=== PATIENT | female | born 1980 | race Two or more races ===

== ENCOUNTER 2020-08-30 12:23 | Outpatient (REF) | payer OTHER, SELFPAY | END 2020-08-30 12:24 | disposition home or self-care (01) | LOC: HO.LAB 12:23 | PROVIDERS: PCP Internal Medicine; Visit Provider Internal Medicine | DX: Z20.822 Contact with and (suspected) exposure to COVID-19 (principal) | CPT/HCPCS: 36415; C9803; U0003 ==

== ENCOUNTER 2020-10-17 10:33 | Outpatient (REF) | payer MEDICAID, SELFPAY ==
[2020-10-18 09:24] LABS: BV Int Neg Control Negative (Negative); BV Int Pos Control Positive (Positive)
[2020-10-18 11:41] LABS: C. trachomatis RNA TMA NOT DETECTED (NOT DETECTED); N. gonorrhoeae RNA TMA NOT DETECTED (NOT DETECTED)
[2020-10-20 11:42] LABS: HPV mRNA E6/E7 rflx Not Detected (Not Detected)
== END 2020-10-17 10:34 | disposition home or self-care (01) ==
LOC: HO.LAB 10:33
PROVIDERS: PCP Internal Medicine; Visit Provider Advanced Practice Midwife
DX: Z01.419 Encounter for gynecological examination (general) (routine) without abnormal findings (principal); Z30.432 Encounter for removal of intrauterine contraceptive device; Z11.51 Encounter for screening for human papillomavirus (HPV); E66.9 Obesity, unspecified; Z68.32 Body mass index [BMI] 32.0-32.9, adult; Z87.59 Personal history of other complications of pregnancy, childbirth and the puerperium
CPT/HCPCS: 36415; 58301; 81025; 87480; 87491; 87510; 87591; 87624; 87660; 88142; 99395

== ENCOUNTER 2020-12-20 11:31 | Outpatient (REF) | payer OTHER, SELFPAY | END 2020-12-20 11:32 | disposition home or self-care (01) | LOC: HO.LAB 11:31 | PROVIDERS: Visit Provider Internal Medicine | DX: Z20.822 Contact with and (suspected) exposure to COVID-19 (principal) | CPT/HCPCS: C9803; U0003; U0005 ==

== ENCOUNTER 2021-01-07 17:57 | Emergency (ER) | payer OTHER, SELFPAY ==
--- NOTE | ~2021-01-07 | CT_ITS ---
EXAMINATION: CT ABDOMEN AND PELVIS WITHOUT CONTRAST CLINICAL INFORMATION: Left flank pain COMPARISON: Ultrasound 06/18/2016 TECHNIQUE: Multidetector volumetric imaging was performed from the superior aspect of the liver through the pubic symphysis. Sagittal and coronal reformatted images were obtained on the technologist's workstation. This CT examination was performed using dose optimization techniques as appropriate, variously including the following: *Automated exposure control *Adjustment of mA and/or kV according to patient size (this includes techniques or standardized protocols for targeted exams where dose is matched to indication/reason for exam; i.e. extremities or head) *Use of iterative reconstruction technique DLP: 927 mGy-cm FINDINGS: LUNG BASES: Bibasilar atelectasis. Normal heart size. LIVER, GALLBLADDER, AND BILIARY TREE: The liver is normal in size, shape, and attenuation. No focal hepatic lesion or biliary ductal dilatation is present. The gallbladder is unremarkable with no evidence of radiopaque gallstones, gallbladder wall thickening, or obvious pericholecystic inflammatory changes. PANCREAS: Unremarkable. SPLEEN: Unremarkable. ADRENAL GLANDS: Unremarkable. KIDNEYS AND URETERS: Normal right kidney. There is severe hydronephrosis of the left kidney without dilation of the left ureter. No calculi seen. BLADDER: Unremarkable. GASTROINTESTINAL TRACT: Stomach and small bowel are nondilated. Normal appendix. No evidence of colitis or diverticulitis. ABDOMINAL WALL: Small fat-containing umbilical hernia. LYMPH NODES: Numerous normal sized retroperitoneal lymph nodes are present. VASCULAR: Normal caliber aorta. PELVIC VISCERA: The uterus and adnexa are unremarkable. OSSEOUS STRUCTURES: No acute or suspicious osseous abnormality. CT/CT abdomen pelvis wo con IMPRESSION: Severe hydronephrosis of the left kidney without involvement of the left ureter. The appearance suggests a ureteropelvic junction obstruction. The prior renal ultrasound from 06/18/2016 showed left-sided hydronephrosis although the patient was at that time.
[2021-01-07 18:17] VITALS: BP 103/61; PULSE 116; RESP 20; TEMP 37.4; O2SAT 97; BMI 42.3
[2021-01-07 20:21] VITALS: BP 118/68; PULSE 104; RESP 16; TEMP 37.9; O2SAT 99
--- NOTE | 2021-01-07 20:26 | ED_ITS ---
HPI - Female Genitourinary General Chief complaint: Urogenital-Female Stated complaint: ?UTI Time Seen by Provider: 01/07/21 20:26 Source: patient and family Mode of arrival: ambulatory Limitations: no limitations History of Present Illness HPI Narrative: L flank pain for 2 days then developed dysuria and pain today with some nausea and chills MD elicited complaint: dysuria and flank pain Onset (ago): day(s) (2) Severity: mild Female Urogenital Radiation: L Flank Quality of pain: stabbing Consistency: constant Vaginal discharge: none Vaginal bleeding: none Urinary symptoms: Dysuria, Urgency and Frequency Exacerbating factors: urination Relieving factors: none Associated symptoms: abdominal pain, chills and nausea Treatment prior to arrival: none Related Data Previous Rx's Medication Instructions Recorded vitamin with calcium 1 tab PO DAILY #90 tab 10/17/20 no.72-iron 27 mg-folic acid 1 mg tablet metronidazole 0.75 % vaginal gel 1 appful VAGINAL BEDTIME 5 Days 10/20/20 #70 g cefuroxime axetil 500 mg PO BID 10 Days #20 tab 01/08/21 hydrocodone-acetaminophen 1 tab PO Q6H PRN #12 tab 01/08/21 ondansetron 4 mg PO Q8H PRN #20 tab 01/08/21 Allergies Allergy/AdvReac Type Severity Reaction Status Date / Time diphenhydramine Allergy Intermediate HIVES, Verified 10/19/20 16:02 [From BENADRYL] ANXIETY Benadryl Allergy Unknown HIVES,ANXIE Verified 10/19/20 16:02 TY Review of Systems Review of Systems: Constitutional : No Fever, pos Chills ENT/Mouth : No sore throat Eyes: No Eye Pain, No Swelling, No Redness Cardiovascular : No Chest Pain, No SOB Respiratory : No Cough, No Sputum, No Wheezing Gastrointestinal : positive Nausea, no Vomiting, No Diarrhea, positive abdominal pain Genitourinary : positive Dysuria, positive urinary frequency, no Hematuria, positive Flank Pain, positive hesitancy Musculoskeletal : No joint pain, No Myalgias Skin : No Skin Lesions, No rash Neuro : No Weakness, No Numbness, No Headache Psych : No Anxiety/Panic, No Depression Heme/Lymph: No Bruising, No Lymphadenopathy Endocrine : No Polyuria, No Polydipsia All other systems reviewed and are negative [facility] Past Medical History Attestation statement: The following information was validated with the patient. Medical History Back pain Chronic sinusitis GERD (gastroesophageal reflux disease) Microcytic anemia Morbid obesity Surgical History History of cervical spinal surgery UPJ (ureteropelvic junction) obstruction Family History Family History Father Diabetes CVD (cardiovascular disease) Hypertension Mother Diabetes Hypertension Maternal Grandmother Diabetes Hypertension Paternal Grandmother No problems noted. Paternal Grandfather No problems noted. Son In good health Son In good health Brother In good health Brother In good health Social History Social History Alcohol intake: current Alcohol intake frequency: holidays/special occasions only Smoking Status: Former smoker Advance Directives: No Advance Directives Information Provided: No Gender identity: female Physical Exam Vital Signs: Vital Signs: Last Vital Signs Temp 100.2 F 01/07/21 20:21 Pulse 104 H 01/07/21 20:21 Resp 16 01/07/21 22:08 BP 118/68 01/07/21 20:21 Pulse Ox 99 01/07/21 20:21 Body Mass Index 42.3 Appearance: Alert. Oriented X3. No acute distress. Eyes: Pupils equal, round and reactive to light. ENT: Pharynx normal. Neck: Normal inspection. Neck supple. CVS: Normal heart rate and rhythm. Pulses normal. Respiratory: No respiratory distress. Breath sounds normal. Abdomen: Soft and nontender. mild L flank CVA ttp Skin: Skin warm and dry. Normal skin color. Normal skin turgor. Extremities: No lower extremity edema. No calf ttp Neuro: Oriented X 3. No motor deficit. No sensory deficit. Course Course Course Narrative: + UA - infection suspected at this time 1008pm - cultures, lactic acid, ceftriaxone ordered + UTI, eating not toxic, has known hydronephrosis per her reports finding is not new, will refer to urology and start on antibiotics MDM - Female Genitourinary MDM Narrative Medical decision making narrative: 40 yo female here with L flank pain and urinary symptoms at this time will need labs, UA, CT scan for renal colic, IV morphine for pain, dispo per results and improvement Lab Data Result diagrams: 01/07/21 21:01 01/07/21 21:01 Labs: Lab Results 01/07/21 01/07/21 01/07/21 Range/Units 21:01 21:01 21:01 WBC 14.4 H (4.8-10.8) X10*3/uL RBC 4.75 (4.20-5.50) X10*6/uL Hgb 11.1 L (12.0-16.0) g/dl Hct 33.7 L (37-47) % MCV 70.9 L (80-98) fL MCH 23.4 L (27.0-33.0) pg MCHC 32.9 (31.0-35.0) g/dl RDW 15.8 (11.0-16.0) % Plt Count 192 (160-400) X10*3/uL MPV 10.3 (9.4-12.3) fL Immature Gran % (Auto) 0.6 H (0.0-0.4) % Neut % (Auto) 89.2 H (45-73) % Lymph % (Auto) 6.5 L (20-40) % [place] % (Auto) 3.3 (2-11) % Eos % (Auto) 0.1 (0-4) % Baso % (Auto) 0.3 (0-2) % Lymph # (Auto) 0.9 L (1.2-4.9) X10*3/uL [place] # (Auto) 0.5 (0.1-1.2) X10*3/uL Eos # (Auto) 0.0 (0.0-0.4) X10*3/uL Baso # (Auto) 0.0 (0.0-0.2) X10*3/uL Abs Immat Gran (auto) 0.09 H (0.00-0.03) X10*3/uL Absolute Neuts (auto) 12.8 H (2.0-8.3) X10*3/uL Absolute Nucleated RBC 0.000 (0.0-0.012) X10*3/uL Nucleated RBC % (auto) 0.0 (0.0-0.2) /100WBC Hold Blue Top SEE NOTE Sodium 140 (135-145) mmol/L Potassium 4.0 (3.3-5.1) mmol/L Chloride 107 (96-108) mmol/L Carbon Dioxide 24 (22-29) mmol/L Anion Gap 13 (12-20) BUN 17 H (9-16) mg/dL Creatinine 1.20 (0.5-1.4) mg/dL Estim Creat Clear Calc 65.5 Estimated GFR 50 Random Glucose 112 (60-115) mg/dL Lactic Acid (0.5-2.0) mmol/L Calcium 8.9 (8.4-10.2) mg/dL Magnesium 1.6 (1.6-2.6) mg/dL Total Bilirubin 2.2 H (0.0-1.0) mg/dL Direct Bilirubin 1.0 H (0.0-0.5) mg/dL AST 16 (5-31) U/L ALT 24 (0-31) U/L Alkaline Phosphatase 98 (39-117) U/L Total Protein 7.2 (6.5-8.0) g/dL Albumin 3.8 (3.5-5.0) g/dL Lipase 32 (8-78) U/L Urine Color Urine Appearance Urine pH (5.0-8.0) Ur Specific [place] (1.005-1.025) Urine Protein (NEG-TRACE) MG/DL Urine Glucose (UA) (NEG) MG/DL Urine Ketones (NEG) MG/DL Urine Blood (NEG) Urine Nitrite (NEG) Ur Leukocyte Esterase (NEG) Urine RBC (0) /HPF Urine WBC (0-4) /HPF Urine WBC Clumps Ur Squamous Epith Cells /LPF Urine Bacteria /LPF Urine Mucus /LPF Urine Test (NEGATIVE) 01/07/21 01/07/21 01/07/21 Range/Units 21:52 21:52 22:30 WBC (4.8-10.8) X10*3/uL RBC (4.20-5.50) X10*6/uL Hgb (12.0-16.0) g/dl Hct (37-47) % MCV (80-98) fL MCH (27.0-33.0) pg MCHC (31.0-35.0) g/dl RDW (11.0-16.0) % Plt Count (160-400) X10*3/uL MPV (9.4-12.3) fL Immature Gran % (Auto) (0.0-0.4) % Neut % (Auto) (45-73) % Lymph % (Auto) (20-40) % [place] % (Auto) (2-11) % Eos % (Auto) (0-4) % Baso % (Auto) (0-2) % Lymph # (Auto) (1.2-4.9) X10*3/uL [place] # (Auto) (0.1-1.2) X10*3/uL Eos # (Auto) (0.0-0.4) X10*3/uL Baso # (Auto) (0.0-0.2) X10*3/uL Abs Immat Gran (auto) (0.00-0.03) X10*3/uL Absolute Neuts (auto) (2.0-8.3) X10*3/uL Absolute Nucleated RBC (0.0-0.012) X10*3/uL Nucleated RBC % (auto) (0.0-0.2) /100WBC Hold Blue Top Sodium (135-145) mmol/L Potassium (3.3-5.1) mmol/L Chloride (96-108) mmol/L Carbon Dioxide (22-29) mmol/L Anion Gap (12-20) BUN (9-16) mg/dL Creatinine (0.5-1.4) mg/dL Estim Creat Clear Calc Estimated GFR Random Glucose (60-115) mg/dL Lactic Acid 0.8 (0.5-2.0) mmol/L Calcium (8.4-10.2) mg/dL Magnesium (1.6-2.6) mg/dL Total Bilirubin (0.0-1.0) mg/dL Direct Bilirubin (0.0-0.5) mg/dL AST (5-31) U/L ALT (0-31) U/L Alkaline Phosphatase (39-117) U/L Total Protein (6.5-8.0) g/dL Albumin (3.5-5.0) g/dL Lipase (8-78) U/L Urine Color DARK YELLOW Urine Appearance CLOUDY Urine pH 6.5 (5.0-8.0) Ur Specific [place] 1.010 (1.005-1.025) Urine Protein 2+ H (NEG-TRACE) MG/DL Urine Glucose (UA) NEG (NEG) MG/DL Urine Ketones NEG (NEG) MG/DL Urine Blood 3+ H (NEG) Urine Nitrite POS H (NEG) Ur Leukocyte Esterase 3+ H (NEG) Urine RBC 5-9 H (0) /HPF Urine WBC TNTC H (0-4) /HPF Urine WBC Clumps NOTED Ur Squamous Epith Cells TRACE /LPF Urine Bacteria TRACE /LPF Urine Mucus TRACE /LPF Urine Test NEGATIVE (NEGATIVE) Discharge Plan Discharge Clinical Impression: UTI (urinary tract infection) Qualifiers: Urinary tract infection type: acute cystitis Hematuria presence: without hematuria Qualified Code(s): N30.00 - Acute cystitis without hematuria Hydronephrosis Qualifiers: Hydronephrosis type: other Qualified Code(s): N13.39 - Other hydronephrosis Patient Disposition: Home, Self-Care Instructions: Urinary Tract Infection in Women (ED) Additional Instructions: return to ED for any worsening symptoms or concerns Prescriptions: New cefuroxime axetil 500 mg tablet 500 mg PO BID 10 Days Qty: 20 RF: 0 hydrocodone-acetaminophen 5-325 mg tablet 1 tab PO Q6H PRN (Reason: pain) Qty: 12 RF: 0 ondansetron 4 mg tablet,disintegrating 4 mg PO Q8H PRN (Reason: nausea and vomiting) Qty: 20 RF: 0 No Action metronidazole [Metrogel Vaginal] 0.75 % gel 1 appful vaginal BEDTIME 5 Days Qty: 70 RF: 0 Vitamin Plus Low Iron 27 mg iron- 1 mg tablet 1 tab PO DAILY Qty: 90 RF: 5 Referrals: Yeyo Camacho MD [Physician] - 5 days Print Language: Yi
[2021-01-07] MEDS: ondansetron HCL 4 MG/2 ML VIAL IVPUSH (21:02)
[2021-01-07] MEDS: Ketorolac Tromethamine 30 MG/ML VIAL IVPUSH (21:04)
[2021-01-07 21:06] VITALS: RESP 16
[2021-01-07] MEDS: Morphine Sulfate 4 MG/ML CARTRIDGE IVPUSH (21:06)
[2021-01-07] MEDS: 0.9 % Sodium Chloride 500 ML IV (21:10)
[2021-01-07 21:18] LABS: MANUAL DIFF FLAG NO
[2021-01-07 21:23] LABS: Basophils Percent Auto 0.3 % (0-2); Eosinophils Percent Auto 0.1 % (0-4); Hematocrit 33.7 % (37-47); Hemoglobin 11.1 g/dl (12.0-16.0); Imm Gran Abs Auto 0.09 X10*3/uL (0.00-0.03); Imm Gran Pct Auto 0.6 % (0.0-0.4); Lymphocytes Absolute Auto 0.9 X10*3/uL (1.2-4.9); Lymphocytes Percent Auto 6.5 % (20-40); Mean Corpuscular HGB Conc 32.9 g/dl (31.0-35.0); Mean Corpuscular Hemoglobin 23.4 pg (27.0-33.0); Mean Corpuscular Volume 70.9 fL (80-98); Mean Platelet Volume 10.3 fL (9.4-12.3); Monocytes Absolute Auto 0.5 X10*3/uL (0.1-1.2); Monocytes Percent Auto 3.3 % (2-11); Neutrophils Absolute Auto 12.8 X10*3/uL (2.0-8.3); Neutrophils Percent Auto 89.2 % (45-73); Platelet Count 192 X10*3/uL (160-400); Red Blood Count 4.75 X10*6/uL (4.20-5.50); Red Cell Distribution Width 15.8 % (11.0-16.0); White Blood Count 14.4 X10*3/uL (4.8-10.8)
[2021-01-07 21:41] LABS: Alanine Aminotransferase 24 U/L (0-31); Albumin Level 3.8 g/dL (3.5-5.0); Alkaline Phosphatase 98 U/L (39-117); Anion Gap 13 (12-20); Aspartate Amino Transferase 16 U/L (5-31); Bilirubin Total 2.2 mg/dL (0.0-1.0); Blood Urea Nitrogen 17 mg/dL (9-16); Calcium 8.9 mg/dL (8.4-10.2); Carbon Dioxide 24 mmol/L (22-29); Chloride 107 mmol/L (96-108); Creatinine Clr Calc Pharmacy 65.5; Estimated Glomerular Filt Rate 50; Glucose Random 112 mg/dL (60-115); Lipase 32 U/L (8-78); Magnesium 1.6 mg/dL (1.6-2.6); Sodium 140 mmol/L (135-145); Total Protein 7.2 g/dL (6.5-8.0)
[2021-01-07 22:00] LABS: Glucose Urine UA NEG (NEG); Leukocyte Esterase Urine 3+ (NEG); Nitrite Urine POS (NEG); PH 6.5 (5.0-8.0); UACC Culture Trigger YES; Urine Blood 3+ (NEG); Urine Ketones NEG (NEG); Urine Protein 2+ MG/DL (NEG-TRACE)
[2021-01-07 22:04] LABS: Appearance Urine CLOUDY; Color Urine DARK YELLOW
[2021-01-07 22:07] VITALS: RESP 16
[2021-01-07 22:08] VITALS: RESP 16
[2021-01-07 22:14] LABS: Bacteria Urine TRACE /LPF; Mucus Urine TRACE /LPF; Squamous Epithelial Cell Urine TRACE /LPF; UPreg QC Valid YES; Urine Pregnancy NEGATIVE (NEGATIVE); WBC Clumps Urine NOTED; WBC Urine TNTC /HPF (0-4)
[2021-01-07] MEDS: cefTRIAXone sodium 1 GM in 0.9 % Sodium Chloride 50 ML IV (22:45)
[2021-01-07 22:58] LABS: Lactic Acid 0.8 mmol/L (0.5-2.0)
== END 2021-01-08 00:42 | disposition home or self-care (01) ==
PROVIDERS: Emergency Provider Emergency Medicine; PCP Internal Medicine
DX: N30.00 Acute cystitis without hematuria (principal); N13.39 Other hydronephrosis; R11.0 Nausea
CPT/HCPCS: 36415; 74176; 80048; 80076; 81001; 81003; 81025; 83605; 83690; 83735; 85025; 87040; 87086; 87088; 87186; 96361; 96365; 96375; 99284; J0696; J1885; J2270; J2405

== ENCOUNTER 2022-01-29 09:13 | Outpatient (REF) | payer OTHER, SELFPAY ==
[2022-01-29 09:40] LABS: COVID-19 Test Positive (Negative)
== END 2022-01-29 09:14 | disposition home or self-care (01) ==
LOC: HO.LAB 09:13
PROVIDERS: Visit Provider Internal Medicine
DX: Z20.822 Contact with and (suspected) exposure to COVID-19 (principal)
CPT/HCPCS: 87635; C9803

== ENCOUNTER 2022-02-27 09:06 | Outpatient (REF) | payer OTHER, SELFPAY ==
--- NOTE | ~2022-02-27 | XR_ITS ---
EXAMINATION: XR CERVICAL SPINE CLINICAL INFORMATION: Neck pain. COMPARISON: None. TECHNIQUE: 3 views of the cervical spine were obtained. 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 There is cerclage wires and posterior fusion of the occipital prominence and C1-C2 spinous processes. The remainder of the spinous processes appear small. Bone alignment is normal. No fracture or dislocation is seen. Disc spaces are normal. Prevertebral soft tissues are normal. 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 Posterior fusion of the posterior elements at these levels.
[2022-02-27 09:21] LABS: MANUAL DIFF FLAG NO
[2022-02-27 09:33] LABS: Basophils Percent Auto 0.5 % (0-2); Eosinophils Absolute Auto 0.3 X10*3/uL (0.0-0.4); Eosinophils Percent Auto 3.2 % (0-4); Hematocrit 36.1 % (37.0-47.0); Hemoglobin 11.8 g/dl (12.0-16.0); Imm Gran Abs Auto 0.01 X10*3/uL (0.00-0.03); Imm Gran Pct Auto 0.1 % (0.0-0.4); Lymphocytes Absolute Auto 2.7 X10*3/uL (1.2-4.9); Lymphocytes Percent Auto 32.8 % (20-40); Mean Corpuscular HGB Conc 32.7 g/dl (31.0-35.0); Mean Corpuscular Hemoglobin 23.7 pg (27.0-33.0); Mean Corpuscular Volume 72.6 fL (80.0-98.0); Mean Platelet Volume 10.8 fL (9.4-12.3); Monocytes Absolute Auto 0.3 X10*3/uL (0.1-1.2); Monocytes Percent Auto 4.2 % (2-11); Neutrophils Absolute Auto 4.8 x10*3/uL (2.0-8.3); Neutrophils Percent Auto 59.2 % (45-73); Platelet Count 271 X10*3/uL (160-400); Red Blood Count 4.97 X10*6/uL (4.20-5.50); Red Cell Distribution Width 14.9 % (11.0-16.0); White Blood Count 8.1 X10*3/uL (4.8-10.8)
[2022-02-27 10:14] LABS: Alanine Aminotransferase 26 U/L (0-31); Albumin Level 3.9 g/dL (3.5-5.0); Alkaline Phosphatase 86 U/L (39-117); Anion Gap 10 (12-20); Aspartate Amino Transferase 13 U/L (5-31); Bilirubin Total 0.5 mg/dL (0.0-1.0); Blood Urea Nitrogen 15 mg/dL (9-16); Carbon Dioxide 24 mmol/L (22-29); Chloride 108 mmol/L (96-108); Cholesterol 191 mg/dL; Estimated Glomerular Filt Rate > 60; Glucose Fasting 96 mg/dL (60-99); HDL Cholesterol 47 mg/dL; Iron 79 mcg/dL (30-160); LDL Cholesterol Calculated 124 mg/dl; Percent Iron Saturation 24 % (15-50); Sodium 138 mmol/L (135-145); Total Iron Binding Capacity 327 mcg/dL (228-428); Total Protein 7.4 g/dL (6.5-8.0); Triglycerides 102 mg/dL; Unsaturated Iron Binding 248 ug/dL
[2022-03-05 16:37] LABS: Vitamin D 25-OH, D2 <4 ng/mL; Vitamin D 25-OH, D3 22 ng/mL; Vitamin D 25-OH, Total 22 ng/mL (30-100)
== END 2022-02-27 09:07 | disposition home or self-care (01) ==
LOC: HO.LAB 09:06
PROVIDERS: PCP Internal Medicine; Visit Provider Internal Medicine
DX: Z00.00 Encounter for general adult medical examination without abnormal findings (principal); D64.9 Anemia, unspecified; E78.5 Hyperlipidemia, unspecified; E55.9 Vitamin D deficiency, unspecified; E66.01 Morbid (severe) obesity due to excess calories; M54.2 Cervicalgia
CPT/HCPCS: 36415; 72040; 80053; 80061; 82306; 83540; 85025

== ENCOUNTER 2022-06-21 18:38 | Emergency (ER) | payer OTHER, SELFPAY ==
--- NOTE | ~2022-06-21 | XR_ITS ---
EXAMINATION: XR chest 1V CLINICAL INFORMATION: Reason for Exam cp COMPARISON: None TECHNIQUE: One view of the chest FINDINGS: Right medial basilar airspace opacity which may reflect atelectasis, aspiration or infection. No pneumothorax or pleural effusion. Normal cardiomediastinal silhouette. XR/XR chest 1V Impression: Right medial basilar airspace opacity which may reflect atelectasis, aspiration or infection. Recommend follow-up radiographs to ensure resolution.
--- NOTE | 2022-06-21 18:40 | ECG_ITS ---
Test Reason : CHEST PAIN Blood Pressure : / mmHG Vent. Rate : 079 BPM Atrial Rate : 079 BPM P-R Int : 146 ms QRS Dur : 078 ms QT Int : 412 ms P-R-T Axes : 055 -02 -07 degrees QTc Int : 472 ms Normal sinus rhythm Minimal voltage criteria for LVH, may be normal variant ( R in aVL ) Nonspecific ST and T wave abnormality Prolonged QT Abnormal ECG No previous ECGs available Referred By: Generic ED Physician Electronically Signed By:ANUM ANDINO MD
[2022-06-21 18:41] VITALS: BP 137/72; PULSE 81; RESP 18; TEMP 36.1; O2SAT 100; BMI 52.8
[2022-06-21 19:02] LABS: MANUAL DIFF FLAG NO
[2022-06-21 19:04] LABS: Basophils Absolute Auto 0.1 X10*3/uL (0.0-0.2); Basophils Percent Auto 0.5 % (0-2); Eosinophils Absolute Auto 0.2 X10*3/uL (0.0-0.4); Eosinophils Percent Auto 1.5 % (0-4); Hematocrit 37.3 % (37.0-47.0); Hemoglobin 12.5 g/dl (12.0-16.0); Imm Gran Abs Auto 0.03 X10*3/uL (0.00-0.03); Imm Gran Pct Auto 0.3 % (0.0-0.4); Lymphocytes Absolute Auto 2.6 X10*3/uL (1.2-4.9); Lymphocytes Percent Auto 24.1 % (20-40); Mean Corpuscular HGB Conc 33.5 g/dl (31.0-35.0); Mean Corpuscular Hemoglobin 24.5 pg (27.0-33.0); Mean Corpuscular Volume 73.1 fL (80.0-98.0); Mean Platelet Volume 10.3 fL (9.4-12.3); Monocytes Absolute Auto 0.5 X10*3/uL (0.1-1.2); Monocytes Percent Auto 4.2 % (2-11); Neutrophils Absolute Auto 7.6 x10*3/uL (2.0-8.3); Neutrophils Percent Auto 69.4 % (45-73); Platelet Count 274 X10*3/uL (160-400); Red Cell Distribution Width 14.1 % (11.0-16.0); White Blood Count 10.9 X10*3/uL (4.8-10.8)
[2022-06-21 19:27] LABS: Alanine Aminotransferase 24 U/L (0-31); Albumin Level 4.1 g/dL (3.5-5.0); Alkaline Phosphatase 90 U/L (39-117); Anion Gap 15 (12-20); Aspartate Amino Transferase 16 U/L (5-31); Bilirubin Total 0.3 mg/dL (0.0-1.0); Blood Urea Nitrogen 15 mg/dL (9-16); Calcium 9.4 mg/dL (8.4-10.2); Carbon Dioxide 23 mmol/L (22-29); Chloride 106 mmol/L (96-108); Creatinine Clr Calc Pharmacy 66.6; Estimated Glomerular Filt Rate 59; Glucose Random 117 mg/dL (60-115); Sodium 140 mmol/L (135-145); Total Protein 7.8 g/dL (6.5-8.0)
[2022-06-21 19:34] LABS: Troponin-I High Sensitivity < 3.5 ng/L (<3.5-17.0)
--- NOTE | 2022-06-21 22:38 | ED.CHESTPAIN ---
HPI - Chest Pain General Chief Complaint: Chest Pain Stated Complaint: chest pain Time Seen by Provider: 06/21/22 22:37 Source: patient Mode of arrival: ambulatory History of Present Illness HPI narrative: Patient was seen and past medical history complaining of increased heartburn with mid chest pain for last 2 days with nausea no vomiting diarrhea no palpitation patient has a history of heartburn in the past not taking her medication Related Data Previous Rx's Medication Instructions Recorded hydrocortisone 1 % topical cream 1 appl topical TID PRN skin 02/28/22 (Anti-Itch (hydrocortisone)) irritation 7 days #28.4 grams ibuprofen 800 mg tablet 800 mg PO Q8H PRN pain 30 days #90 02/28/22 tabs omeprazole 20 mg capsule,delayed 20 mg PO DAILY 90 days #90 caps 02/28/22 release cholecalciferol (vitamin D3) 25 25 mcg PO DAILY 90 days #90 caps 03/05/22 mcg (1,000 unit) capsule topiramate 25 mg tablet 25 mg PO BEDTIME 90 days #90 tabs 05/27/22 pantoprazole 40 mg tablet,delayed 40 mg PO DAILY #30 tabs 06/21/22 release (Protonix) sucralfate 1 gram tablet 1 g PO TID #90 tabs 06/21/22 Allergies Allergy/AdvReac Type Severity Reaction Status Date / Time diphenhydramine Allergy Intermediate HIVES, Verified 02/28/22 10:52 [From BENADRYL] ANXIETY Benadryl Allergy Unknown HIVES,ANXIE Verified 02/28/22 10:52 [facility] Past Medical History Medical History Back pain Chronic sinusitis Encounter for physical examination GERD (gastroesophageal reflux disease) Microcytic anemia Morbid obesity Neck pain Surgical History History of cervical spinal surgery UPJ (ureteropelvic junction) obstruction Family History Family History Father Diabetes CVD (cardiovascular disease) Hypertension Mother Diabetes Hypertension Maternal Grandmother Diabetes Hypertension Paternal Grandmother No problems noted. Paternal Grandfather No problems noted. Son In good health Son In good health Brother In good health Brother In good health Social History Social History Housing: Apartment Alcohol intake: current Alcohol intake frequency: holidays/special occasions only Alcohol type: beer Patient Tobacco Use Status: Never used Tobacco Smoked in Last 30 Days: No e-Cigarette/Vaping Use: Never Used Second Hand Smoke Exposure: No Use of substances other than those prescribed or required for medical reasons: No Advance Directives: No Advance Directives Information Provided: No Patient : No service: No Current occupational status: employed Current occupational exposures/hazards: No Gender identity: Female Cognitive needs: No Hearing needs: No Vision needs: Yes Physical Exam Vital Signs: Vital Signs: Last Vital Signs Temp 98.4 F 06/21/22 23:09 Pulse 77 06/21/22 23:09 Resp 14 06/21/22 23:09 BP 141/80 H 06/21/22 23:09 Pulse Ox 98 06/21/22 23:09 O2 Del Method 06/21/22 23:09 BMI result Body Mass Index 52.8 Appearance: Alert. Oriented X3. No acute distress. Eyes: PERRLA, No Nystagmus ENT: Pharynx normal. Oral Mucosa moist Neck: Normal inspection. Neck supple. CVS: Normal heart rate and rhythm. Pulses normal. Respiratory: No respiratory distress. Equal air entry bilateral, no wheezing/rales/rhonchi Abdomen: Soft mild epigastric tenderness Bowel sounds are present, no mass palpable, no CVA tenderness Skin: Skin warm and dry. Normal skin color. Normal skin turgor. Extremities: No lower extremity edema. No calf tendernessNo sensory deficit.No cerebellar signs , cranial nerves II-XII intact MDM - Chest Pain MDM Narrative Medical decision making narrative: Patient with history of gastric reflux comes with mid chest pain with heart score of 0 EKG normal high sensitive troponin negative discharge patient home Differential Diagnosis Differential diagnosis: Likely atypical chest pain and biliary colic Medical Records Data Attestation: I reviewed the patient's medical records. Lab Data Attestation: I reviewed the patient's lab results. Result diagrams: 06/21/22 18:56 06/21/22 18:56 Labs: Lab Results 06/21/22 06/21/22 06/21/22 Range/Units 18:56 18:56 18:56 WBC 10.9 H (4.8-10.8) X10*3/uL RBC 5.10 (4.20-5.50) X10*6/uL Hgb 12.5 (12.0-16.0) g/dl Hct 37.3 (37.0-47.0) % MCV 73.1 L (80.0-98.0) fL MCH 24.5 L (27.0-33.0) pg MCHC 33.5 (31.0-35.0) g/dl RDW 14.1 (11.0-16.0) % Plt Count 274 (160-400) X10*3/uL MPV 10.3 (9.4-12.3) fL Immature Gran % (Auto) 0.3 (0.0-0.4) % Neut % (Auto) 69.4 (45-73) % Lymph % (Auto) 24.1 (20-40) % [place] % (Auto) 4.2 (2-11) % Eos % (Auto) 1.5 (0-4) % Baso % (Auto) 0.5 (0-2) % Lymph # (Auto) 2.6 (1.2-4.9) X10*3/uL [place] # (Auto) 0.5 (0.1-1.2) X10*3/uL Eos # (Auto) 0.2 (0.0-0.4) X10*3/uL Baso # (Auto) 0.1 (0.0-0.2) X10*3/uL Abs Immat Gran (auto) 0.03 (0.00-0.03) X10*3/uL Absolute Neuts (auto) 7.6 (2.0-8.3) x10*3/uL Absolute Nucleated RBC 0.000 (0.0-0.012) X10*3/uL Nucleated RBC % (auto) 0.0 (0.0-0.2) /100WBC Sodium 140 (135-145) mmol/L Potassium 4.0 (3.3-5.1) mmol/L Chloride 106 (96-108) mmol/L Carbon Dioxide 23 (22-29) mmol/L Anion Gap 15 (12-20) BUN 15 (9-16) mg/dL Creatinine 1.03 (0.5-1.4) mg/dL Estim Creat Clear Calc 66.6 Estimated GFR 59 Random Glucose 117 H (60-115) mg/dL Calcium 9.4 (8.4-10.2) mg/dL Total Bilirubin 0.3 (0.0-1.0) mg/dL AST 16 (5-31) U/L ALT 24 (0-31) U/L Alkaline Phosphatase 90 (39-117) U/L Troponin I High Sens < 3.5 (<3.5-17.0) ng/L Total Protein 7.8 (6.5-8.0) g/dL Albumin 4.1 (3.5-5.0) g/dL ECG Data ECG #1: Attestation: I personally reviewed and interpreted this ECG as follows: Interpretation: Patient atypical chest pain heart rate 79 beats per minute, LVH, nonspecific ST-T changes no acute ischemia Discharge Plan Discharge Clinical Impression: Gastritis, Chest pain due to GERD Patient Disposition: Home, Self-Care Instructions: Gastritis (ED), Noncardiac Chest Pain (ED) Additional Instructions: Avoid fried/spicy Take Protonix daily and sucralfate as prescribed Follow with PCP if not better Prescriptions: New pantoprazole [Protonix] 40 mg tablet,delayed release (DR/EC) 40 mg PO DAILY Qty: 30 0RF sucralfate 1 gram tablet 1 g PO TID Qty: 90 0RF No Action omeprazole 20 mg capsule,delayed release(DR/EC) 20 mg PO DAILY 90 Days Qty: 90 0RF cholecalciferol (vitamin D3) 25 mcg (1,000 unit) capsule 25 mcg PO DAILY 90 Days Qty: 90 1RF topiramate 25 mg tablet 25 mg PO BEDTIME 90 Days Qty: 90 0RF ibuprofen 800 mg tablet 800 mg PO Q8H PRN (Reason: pain) 30 Days Qty: 90 1RF hydrocortisone [Anti-Itch (HC)] 1 % cream 1 appl topical TID PRN (Reason: skin irritation) 7 Days Qty: 28.4 0RF Interventions: ED Discharge Assessment Last Done: 06/21/22 23:11 Discharge Date/Time: 06/21/22 23:12
[2022-06-21] MEDS: Omeprazole 40 MG CAPSULE.DR PO (23:05)
[2022-06-21] MEDS: Magnesium Hydrox/Alum Hydrox 30 ML ORAL.SUSP PO (23:05)
[2022-06-21 23:09] VITALS: BP 141/80; PULSE 77; RESP 14; TEMP 36.9; O2SAT 98
--- NOTE | 2022-06-21 23:11 | PC.NURSE ---
Discharge instructions reviewed with pt. Pt verbalizes understanding.
== END 2022-06-21 23:12 | disposition home or self-care (01) ==
PROVIDERS: Emergency Provider Internal Medicine; PCP Internal Medicine
DX: K29.70 Gastritis, unspecified, without bleeding (principal); R07.89 Other chest pain; K21.9 Gastro-esophageal reflux disease without esophagitis; E66.9 Obesity, unspecified; Z68.43 Body mass index [BMI] 50.0-59.9, adult
CPT/HCPCS: 36415; 71045; 80053; 84484; 85025; 93005; 99283; 99285

== ENCOUNTER → 2023-02-06 09:41 | Outpatient (BNVA) | payer OTHER, SELFPAY | PROVIDERS: PCP Internal Medicine; Visit Provider Advanced Practice Midwife ==

== ENCOUNTER 2024-01-31 08:38 | Outpatient (AMB) | payer OTHER, SELFPAY ==
--- NOTE | 2024-01-31 08:43 | A.OFFVIS_ITS ---
Vital Signs 01/31/24 08:49 Height 4 ft 6 in Weight 219 lb BMI 52.8 BP 105/72 Blood Pressure Location Lt brachial Position Sitting Pulse 73 Pulse Source Pulse Oximeter Pulse Oximetry (%) 99 Oxygen Delivery Method Room Air Intake Visit Reasons: Cervicalgia, lower back pain Intake Note: Pain today 09/28 Supervisor Cytogenetic Laboratory Required: Yes Supervisor Cytogenetic Laboratory Language: Wafer Substrate Tester Name: Anthony- Accompanied by: Spouse Allergies diphenhydramine [From BENADRYL] Allergy (Intermediate, Verified 01/31/24 08:49) HIVES, ANXIETY Benadryl Allergy (Unknown, Verified 01/31/24 08:49) HIVES,ANXIETY HPI HPI Cervicalgia, lower back pain: Details: Patient is a pleasant 43 years old female with history of cervical fusion at age 5 due to fall injury, morbid obesity, chronic neck and back pain, presents today for initial evaluation of neck and back pain. Denies any recent trauma, injury or falls. She has pending cervical, thoracic and lumbar xrays which were ordered by PCP but not completed yet. She reports restricted neck movement since cervical fusion with increased neck pain and muscle spasms with cervical extension and side rotations or bending. Back pain is axial increased with lateral rotations and forward flexion or bending. There is no radiation into upper or lower extremities. Neck and back pain are limiting her daily activities, functioning, mobility and negatively affecting her sleep, social interactions and quality of life. To this point patient has not tried any dedicated conservative treatment in the forms of physical therapy, chiropractic, acupuncture or injections. She recently started semaglutide injections for weight loss support with current BMI=52.8. Patient is interested to start formal physical therapy prior to interventional treatments. Denies any fever, chills, infection, abdominal or groin pain, dizziness, shortness of breaths, chest pain, gait imbalance, foot drop, weakness, bladder or bowel dysfunction or saddle anesthesia. Oswestry Low back disability score=16 (moderate disability) Oswestry Neck disability score=19 (moderate disability) Location: Lower neck radiates down to lower back Duration: Chronic pain for >38 years, cervical fusion at age 5, fell downstairs Characteristics of symptom or complaint: Burning, shooting, pins and needles, st abbing, aching, spasming Aggravating or associated factors: Standing, walking, movement, Relieving factors: Laying flat, Ibuprofen, Tylenol, heat and ice Treatment: None [facility] Medical History (Updated 01/31/24 @ 09:16 by JIM Braden) Neck pain Encounter for physical examination Microcytic anemia Morbid obesity Back pain GERD (gastroesophageal reflux disease) Chronic sinusitis Surgical History (Updated 01/31/24 @ 09:16 by JIM Braden) History of cervical spinal surgery UPJ (ureteropelvic junction) obstruction Family History Father Diabetes CVD (cardiovascular disease) Hypertension Mother Diabetes Hypertension Maternal Grandmother Diabetes Hypertension Paternal Grandmother No problems noted. Paternal Grandfather No problems noted. Son In good health Son In good health Brother In good health Brother In good health Social History Housing: Apartment Alcohol intake: current Alcohol intake frequency: holidays/special occasions only Alcohol type: beer Patient Tobacco Use Status: Never used Tobacco e-Cigarette/Vaping Use: Never Used Second Hand Smoke Exposure: No service: No Current occupational status: unemployed Gender identity: Female Cognitive needs: No Hearing needs: No Vision needs: Yes Female Reproductive History Menstrual Age of Menarche: 13 Review of Systems Const All systems reviewed & are unremarkable except as noted in HPI and below Physical Exam Vital Signs: Last Vital Signs Pulse 73 01/31/24 08:49 BP 105/72 01/31/24 08:49 Pulse Ox 99 01/31/24 08:49 Oxygen Delivery Method Room Air 01/31/24 08:49 BMI result Body Mass Index 52.8 General: Appears afebrile. Morbidly obese. No acute distress. Alert and oriented. Mood and affect appropriate. Follows and participates in conversation appropriately. Respiratory effort is unlabored. No cough. Able to transition from sit to stand unassisted. Ambulates with bilaterally normal heel strike and toe off. Neck Neck: Yes normal visual inspection, Yes no lymphadenopathy, Yes supple, No anterior neck swelling, Yes no JVD and Yes prominent dorsocervical fat pad General: Yes no CVA tenderness Back/Spine/Pelvis Other: Limited lumbar ROM due to body habitus and pain. No midline tenderness to palpation in the thoracic or lumbar region. Moderate paraspinal tenderness to palpation in the lumbar spine bilaterally. Lumbar extension and flexion reproduces mild to moderate pain. Forward flexion reproduces tugging sensations and low back pain. Painful facet loading bilaterally.+2 DTR intact, no clonus. Strength 5/5 hip flexion bilaterally. No groin pain with I/E hip rotations bilaterally.? Back: no CVA tenderness Cervical Spine: loss of normal cervical lordosis, cervical muscular tenderness, pain with cervical ROM, Cervical spine scars present (posterior), cervical spasm, Cervical spine tenderness and No step off deformity Thoracic/Lumbar Spine: thoracic and lumbar spine normal to inspection, No Thoracic/lumbar spine scar(s), Lasegue's sign negative, straight leg raise negative bilaterally, pain with thoraco-lumbar ROM, paraspinal muscle tenderness, thoraco-lumbar ROM limited, No thoracic spinal tenderness and lumbar spinal tenderness (L4-S1) Pelvis: no sciatic notch tenderness Sacroiliac joints: bilaterally tender to palpation Results Reviewed Results Reviewed: XR CERVICAL SPINE 02/27/22 CLINICAL INFORMATION: Neck pain. 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 There is cerclage wires and posterior fusion of the occipital prominence and C1-C2 spinous processes. The remainder of the spinous processes appear small. Bone alignment is normal. No fracture or dislocation is seen. Disc spaces are normal. Prevertebral soft tissues are normal. 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 Posterior fusion of the posterior elements at these levels. Assessment & Plan Assessment & Plan (1) History of cervical spinal surgery: Comment: 1986 cervical spine surgery with wires Code(s): Z98.890 - Other specified postprocedural states Category: Surgical (2) Lumbar pain: Code(s): M54.50 - Low back pain, unspecified Category: Medical (3) Neck pain: Code(s): M54.2 - Cervicalgia Category: Medical (4) Thoracic spine pain: Code(s): M54.6 - Pain in thoracic spine Category: Medical (5) Muscle spasm: Code(s): M62.838 - Other muscle spasm Category: Medical (6) Cervical spondylosis: Code(s): M47.812 - Spondylosis without myelopathy or radiculopathy, cervical region Category: Medical Plan Patient's presentation consistent with axial cervical and lumbar pain with discogenic components. Pain today is minimal, rated at 2/10. We reviewed possible treatment options for both, including PT, diagnostic injections for potential therapeutic injections or RFA. Given BMI>40, patient is not candidate for Sprint PNS trial at this time. Patient is encouraged to continue to loose weight, recently started on semaglutide, encouraged to consider well-balanced diet such as Mediterranean diet and intermittent fasting. Encouraged daily physical activity, adequate hydration, good posture and sleep hygiene. Patient reminded to complete spine xray as ordered by her PCP. Script provided for baclofen for muscle spasms. Side effects and precautions discussed with patient and her . All questions and concerns have been answered and patient agreed with the plan. Follow up after PT/xray review and sooner as needed. Orders: Orders PT Evaluation and Treatment 01/31/24 M47.812 - Spondylosis without myelopathy or radiculopathy, cervical region, M54.2 - Cervicalgia, M54.50 - Low back pain, unspecified, M54.6 - Pain in thoracic spine, M62.838 - Other muscle spasm, Z98.890 - Other specified postprocedural states Medications: New baclofen 10 mg PO BID PRN 60 tabs 0RF muscle spasm 30 days M47.812 - Spondylosis without myelopathy or radiculopathy, cervical region, M54.50 - Low back pain, unspecified, M54.6 - Pain in thoracic spine, M62.838 - Other muscle spasm, Z98.890 - Other specified postprocedural states Coding Level of Care Code New Pt Level 4 (70318) Diagnoses History of cervical spinal surgery Z98.890 Lumbar pain M54.50 Neck pain M54.2 Thoracic spine pain M54.6 Muscle spasm M62.838 Cervical spondylosis M47.812
[2024-01-31 08:49] VITALS: BP 105/72; PULSE 73; O2SAT 99; BMI 52.8
== END 2024-01-31 09:29 | disposition home or self-care (01) ==
PROVIDERS: PCP Internal Medicine; Visit Provider Nurse Practitioner Family
DX: M54.50 Low back pain, unspecified (principal); M54.2 Cervicalgia; M54.6 Pain in thoracic spine; Z98.890 Other specified postprocedural states; M62.838 Other muscle spasm; M47.812 Spondylosis without myelopathy or radiculopathy, cervical region
CPT/HCPCS: 99204

== ENCOUNTER → 2024-01-31 08:38 | Outpatient (BNVA) | payer OTHER, SELFPAY | PROVIDERS: PCP Internal Medicine; Visit Provider Nurse Practitioner Family | DX: M54.50 Low back pain, unspecified (principal); M54.2 Cervicalgia; M54.6 Pain in thoracic spine; M62.838 Other muscle spasm; M47.812 Spondylosis without myelopathy or radiculopathy, cervical region | CPT/HCPCS: 99202 ==

== ENCOUNTER 2024-06-10 09:58 | Emergency (ER) | payer OTHER, SELFPAY ==
--- NOTE | ~2024-06-10 | CT_ITS ---
EXAMINATION: CT ABDOMEN AND PELVIS WITHOUT CONTRAST CLINICAL INFORMATION: Left-sided flank pain COMPARISON: Prior CT abdomen pelvis dated 01/07/2021 TECHNIQUE: Multidetector volumetric imaging was performed from the superior aspect of the liver through the pubic symphysis. Sagittal and coronal reformatted images were obtained on the technologist's workstation. This CT examination was performed using dose optimization techniques as appropriate, variously including the following: *Automated exposure control *Adjustment of mA and/or kV according to patient size (this includes techniques or standardized protocols for targeted exams where dose is matched to indication/reason for exam; i.e. extremities or head) *Use of iterative reconstruction technique DLP: 934 mGy-cm FINDINGS: LUNG BASES: The visualized lung bases are unremarkable. LIVER, GALLBLADDER, AND BILIARY TREE: The liver is normal in size, shape, and attenuation. No focal hepatic lesion or biliary ductal dilatation is present. The gallbladder is unremarkable with no evidence of radiopaque gallstones, gallbladder wall thickening, or obvious pericholecystic inflammatory changes. PANCREAS: Unremarkable. SPLEEN: Unremarkable. ADRENAL GLANDS: Unremarkable. KIDNEYS AND URETERS: The left kidney is somewhat atrophic with a thin cortex and a dilated renal pelvis as was seen on the 2020 exam. This is likely reflective of a UPJ obstruction which appears chronic. No evidence for right or left nephrolithiasis or right hydronephrosis. No evidence for calcifications along the course of the ureters. The bladder is unremarkable. BLADDER: Unremarkable. GASTROINTESTINAL TRACT: The small and large bowel are unremarkable. The appendix is unremarkable. ABDOMINAL WALL: Small fat-containing umbilical hernia no change. LYMPH NODES: Normal. VASCULAR: Unremarkable. PELVIC VISCERA: Unremarkable. OSSEOUS STRUCTURES: Unremarkable. CT/CT abdomen pelvis wo IV con IMPRESSION: Stable left hydronephrosis likely due to a left UPJ obstruction. No change from 01/07/2021. Fleischner guidelines were followed. Electronically signed by: Brandon Vera MD 06/10/2024 03:44 PM EDT
[2024-06-10 10:20] VITALS: BP 125/68; PULSE 80; RESP 16; TEMP 36.1; O2SAT 100; BMI 43.7
[2024-06-10 11:44] LABS: UPreg QC Valid YES
[2024-06-10 11:45] LABS: Appearance Urine Cloudy; Color Urine Dark Yellow; Glucose Urine UA Negative (Negative); Leukocyte Esterase Urine Large (3+) (Negative); Nitrite Urine Negative (Negative); Specific Gravity - Urine 1.015 (1.005-1.025); UMIC TRIGGER UACC YES; Urine Blood Large (3+) (Negative); Urine Ketones Negative (Negative); Urine Protein 30 (1+) mg/dL (Neg-Trace)
[2024-06-10 11:46] LABS: Urine Pregnancy NEGATIVE (NEGATIVE)
[2024-06-10 11:47] LABS: Bacteria Urine 4+ (None Seen); Hyaline Casts Urine 0-2 /LPF (0-2); RBC Urine >20 /HPF (0-2); Squamous Epithelial Cell Urine 0-2 /HPF (0-2); UACC Culture Trigger YES; WBC Urine 21-50 /HPF (0-5)
--- NOTE | 2024-06-10 12:07 | ED.FEMALEGU ---
HPI - Female Genitourinary General Chief complaint: Urogenital-Female Stated complaint: Blood in urine Time Seen by Provider: 06/10/24 11:38 Source: patient Mode of arrival: ambulatory Limitations: no limitations History of Present Illness ED Provider: Pranav Mackenzie PA-C HPI Narrative: [age] female with history of hydronephrosis, cervical spondylosis, and hypertension presents to ED for 2 days of hematuria and low back pain. Patient denies any nausea, vomiting, or dysuria. Patient denies any weight loss, fever, or chills. Related Data Previous Rx's ?Medication ?Instructions ?Recorded ibuprofen 800 mg tablet 800 mg PO Q8H PRN pain 30 days #90 12/14/23 tabs semaglutide (weight loss) 0.25 0.25 mg (0.5 mL) subcut QWEEK 4 01/23/24 mg/0.5 mL subcutaneous pen weeks #2 mL injector (Wegovy) baclofen 10 mg tablet 10 mg PO BID PRN muscle spasm 30 01/31/24 days #60 tabs omeprazole 20 mg capsule,delayed 20 mg PO DAILY 90 days #90 caps 03/28/24 release cefuroxime axetil 250 mg tablet 250 mg PO Q12H 7 days #14 tabs 06/10/24 Allergies Allergy/AdvReac Type Severity Reaction Status Date / Time diphenhydramine Allergy Intermediate HIVES, Verified 06/10/24 10:22 [From BENADRYL] ANXIETY Benadryl Allergy Unknown HIVES,ANXIE Verified 06/10/24 10:22 TY Review of Systems Review of Systems: Back pain, hematuria Yes all other systems are reviewed and are negative [facility] Past Medical History Medical History (Updated 06/10/24 @ 16:05 by DULCE Lemus) Neck pain Encounter for physical examination Microcytic anemia Morbid obesity Back pain GERD (gastroesophageal reflux disease) Chronic sinusitis Surgical History (Updated 01/31/24 @ 09:16 by JIM Braden) History of cervical spinal surgery UPJ (ureteropelvic junction) obstruction Family History Family History Father Diabetes CVD (cardiovascular disease) Hypertension Mother Diabetes Hypertension Maternal Grandmother Diabetes Hypertension Paternal Grandmother No problems noted. Paternal Grandfather No problems noted. Son In good health Son In good health Brother In good health Brother In good health Social History Social History Housing: Apartment Alcohol intake: current Alcohol intake frequency: holidays/special occasions only Alcohol type: beer Patient Tobacco Use Status: Never used Tobacco e-Cigarette/Vaping Use: Never Used Second Hand Smoke Exposure: No Advance Directives: No Advance Directives Information Provided: Yes service: No Current occupational status: unemployed Gender identity: Female Cognitive needs: No Hearing needs: No Vision needs: Yes Physical Exam Vital Signs: Vital Signs: Last Vital Signs Temp 98.5 F 06/10/24 16:20 Pulse 76 06/10/24 16:20 Resp 15 06/10/24 16:20 BP 102/61 06/10/24 16:20 Pulse Ox 96 06/10/24 16:20 O2 Del Method Room Air 06/10/24 16:20 BMI result Body Mass Index 43.7 Const: General: cooperative, healthy appearing, comfortable, no acute distress, well developed, alert, awake and Physically active Orientation/consciousness: patient oriented x3 HEENT: Head: Yes normal to inspection, Yes No palpable skull fracture present, Yes normocephalic, Yes atraumatic and No abrasion Eyes: General: appearance normal, both eyes and all related structures Neck: Neck: Yes normal visual inspection, Yes full ROM, Yes no lymphadenopathy, Yes no meningeal signs, Yes trachea midline, Yes supple, No anterior neck swelling and No tender Chest: Chest palpation & inspection: normal inspection of the chest and normal palpation of entire chest wall Resp: Effort & Inspection: normal respiratory effort and able to speak in complete sentences Auscultation: clear to auscultation bilaterally Cardio: Jugular venous distension: no JVD Heart sounds: S1 normal heart sound present and S2 normal heart sound present GI: Inspection: Yes normal to inspection Palpation (GI): Soft to palpation, not firm, nontender, no guarding and not rigid : General: Yes no CVA tenderness Back/Spine/Pelvis: Back: no CVA tenderness and No back tenderness Skin: General skin exam: no rashes or lesions noted, elasticity normal and turgor normal Neuro: General: patient oriented x3, gait normal, tone normal, moves all extremities, Normal light touch and pain sensation, no meningeal signs, no focal motor deficits, CN's II-XI intact bilaterally and normal sensation to monofilament Extrem: General: Yes normal to inspection, Yes full ROM and Yes capillary refill normal Psych: Appearance: grossly normal, well kempt and not disheveled Medical Decision Making Medical Decision Making [facility] Narrative: 43-year-old female presents to ED for low back pain with hematuria with past medical history of hydronephrosis. UA shows large amounts of leukocyte esterase red blood cells and white blood cell count. Was sent for CT scan to evaluate for kidney stones. 3:53pm: Patient's CT scan shows chronic hydronephrosis and left UPJ. Patient has no white count. Kidney function is normal. Patient will be discharged antibiotics and follow-up with urology and primary care provider. Not suspecting urosepsis, or pyelonephritis. Differential Diagnosis Differential Diagnoses: The differential diagnosis associated with the presentation includes (Kidney stones, UTI, pyelonephritis) Admission/Observation Consideration of admission/observation: Escalation of care including admission/observation considered Lab Data [facility] Lab Attestation statement: I reviewed the patient's lab results. 06/10/24 12:25 06/10/24 12:25 Labs: Lab Results 06/10/24 06/10/24 Range/Units 11:37 12:25 WBC 8.3 (4.8-10.8) X10*3/uL RBC 4.70 (4.20-5.50) X10*6/uL Hgb 11.6 L (12.0-16.0) g/dl Hct 34.2 L (37.0-47.0) % MCV 72.8 L (80.0-98.0) fL MCH 24.7 L (27.0-33.0) pg MCHC 33.9 (31.0-35.0) g/dl RDW 14.4 (11.0-16.0) % Plt Count 263 (160-400) X10*3/uL MPV 9.9 (9.4-12.3) fL Immature Gran % (Auto) 0.2 (0.0-0.4) % Neut % (Auto) 67.8 (45-73) % Lymph % (Auto) 23.9 (20-40) % Norman % (Auto) 5.2 (2-11) % Eos % (Auto) 2.4 (0-4) % Baso % (Auto) 0.5 (0-2) % Lymph # (Auto) 2.0 (1.2-4.9) X10*3/uL Norman # (Auto) 0.4 (0.1-1.2) X10*3/uL Eos # (Auto) 0.2 (0.0-0.4) X10*3/uL Baso # (Auto) 0.0 (0.0-0.2) X10*3/uL Abs Immat Gran (auto) 0.02 (0.00-0.03) X10*3/uL Absolute Neuts (auto) 5.6 (2.0-8.3) x10*3/uL Absolute Nucleated RBC 0.000 (0.0-0.012) X10*3/uL Nucleated RBC % (auto) 0.0 (0.0-0.2) /100WBC Sodium 143 (135-145) mmol/L Potassium 3.8 (3.3-5.1) mmol/L Chloride 110 H (96-108) mmol/L Carbon Dioxide 28 (22-29) mmol/L Anion Gap 9 L (12-20) BUN 14 (9-16) mg/dL Creatinine 0.86 (0.5-1.4) mg/dL Estim Creat Clear Calc 90.4 Estimated GFR > 60 Random Glucose 110 (60-115) mg/dL Calcium 8.8 D (8.4-10.2) mg/dL Total Bilirubin 0.3 (0.0-1.0) mg/dL AST 24 (5-31) U/L ALT 33 H (0-31) U/L Alkaline Phosphatase 80 (39-117) U/L Total Protein 7.1 (6.5-8.0) g/dL Albumin 3.6 (3.5-5.0) g/dL Urine Color Dark Yellow Urine Appearance Cloudy Urine pH 7.0 (5.0-9.0) Ur Specific [place] 1.015 (1.005-1.025) Urine Protein 30 (1+) H (Neg-Trace) mg/dL Urine Glucose (UA) Negative (Negative) mg/dL Urine Ketones Negative (Negative) mg/dL Urine Blood Large (3+) H (Negative) Urine Nitrite Negative (Negative) Ur Leukocyte Esterase Large (3+) H (Negative) Urine RBC >20 H (0-2) /HPF Urine WBC 21-50 H (0-5) /HPF Ur Squamous Epith Cells 0-2 (0-2) /HPF Urine Bacteria 4+ (None Seen) Hyaline Casts 0-2 (0-2) /LPF Urine Test NEGATIVE (NEGATIVE) Independent Interpretation I performed an independent interpretation of an: CT Scan Radiology Impression Discussion of test interpretation with radiology: I have reviewed the radiologist's reading. Independent Historian Clinical information obtained from an independent historian. History obtained from or confirmed by: Other (patient) External Record Review External record reviewed: Other (prior vistis) Prescription Management I considered prescription management with: Antibiotic Discharge Plan Discharge Clinical Impression: UTI (urinary tract infection), Hematuria, Hydronephrosis Patient Disposition: Home, Self-Care Instructions: Urinary Tract Infection in Women (ED), Hematuria (ED), Hydronephrosis (ED) Additional Instructions: Your urine came back positive for infection and blood. CT scan came back negative for kidney stones but does shows chronic hydronephrosis. You will need to follow-up with urologist for re-evaluation. Return to the ED immediately for any nausea, abdominal pain, vomiting, fever, chills, flank pain, back pain, gross hematuria, dysuria, or any other concerning symptoms. CT/CT abdomen pelvis wo IV con IMPRESSION: Stable left hydronephrosis likely due to a left UPJ obstruction. No change from 01/07/2021. Fleischner guidelines were followed. Electronically signed by: Brandon Vera MD 06/10/2024 03:44 PM EDT Prescriptions: New cefuroxime axetil 250 mg tablet 250 mg PO Q12H 7 Days Qty: 14 0RF No Action ibuprofen 800 mg tablet 800 mg PO Q8H PRN (Reason: pain) 30 Days Qty: 90 1RF omeprazole 20 mg capsule,delayed release(DR/EC) 20 mg PO DAILY 90 Days Qty: 90 0RF Wegovy 0.25 mg/0.5 mL pen injector 0.25 mg subcut QWEEK 28 Days Qty: 2 0RF Rx Instructions: administer weeks 1 through 4 of therapy baclofen 10 mg tablet 10 mg PO BID PRN (Reason: muscle spasm) 30 Days Qty: 60 0RF Referrals: [facility] [Provider Group] (Chronic hydronephrosis. UTI. Hematuria) Stand Alone Forms: Work/School Release Interventions: ED Discharge Assessment Last Done: 06/10/24 16:20 Discharge Date/Time: 06/10/24 16:21 Print Language: Citizen Of [place]
[2024-06-10 12:30] LABS: MANUAL DIFF FLAG NO
[2024-06-10 12:37] LABS: Basophils Percent Auto 0.5 % (0-2); Eosinophils Absolute Auto 0.2 X10*3/uL (0.0-0.4); Eosinophils Percent Auto 2.4 % (0-4); Hematocrit 34.2 % (37.0-47.0); Hemoglobin 11.6 g/dl (12.0-16.0); Imm Gran Abs Auto 0.02 X10*3/uL (0.00-0.03); Imm Gran Pct Auto 0.2 % (0.0-0.4); Lymphocytes Percent Auto 23.9 % (20-40); Mean Corpuscular HGB Conc 33.9 g/dl (31.0-35.0); Mean Corpuscular Hemoglobin 24.7 pg (27.0-33.0); Mean Corpuscular Volume 72.8 fL (80.0-98.0); Mean Platelet Volume 9.9 fL (9.4-12.3); Monocytes Absolute Auto 0.4 X10*3/uL (0.1-1.2); Monocytes Percent Auto 5.2 % (2-11); Neutrophils Absolute Auto 5.6 x10*3/uL (2.0-8.3); Neutrophils Percent Auto 67.8 % (45-73); Platelet Count 263 X10*3/uL (160-400); Red Cell Distribution Width 14.4 % (11.0-16.0); White Blood Count 8.3 X10*3/uL (4.8-10.8)
[2024-06-10 12:46] LABS: Alanine Aminotransferase 33 U/L (0-31); Albumin Level 3.6 g/dL (3.5-5.0); Alkaline Phosphatase 80 U/L (39-117); Anion Gap 9 (12-20); Aspartate Amino Transferase 24 U/L (5-31); Bilirubin Total 0.3 mg/dL (0.0-1.0); Blood Urea Nitrogen 14 mg/dL (9-16); Calcium 8.8 mg/dL (8.4-10.2); Carbon Dioxide 28 mmol/L (22-29); Chloride 110 mmol/L (96-108); Creatinine Clr Calc Pharmacy 90.4; Estimated Glomerular Filt Rate > 60; Glucose Random 110 mg/dL (60-115); Potassium 3.8 mmol/L (3.3-5.1); Sodium 143 mmol/L (135-145); Total Protein 7.1 g/dL (6.5-8.0)
[2024-06-10 14:17] VITALS: BP 102/61; PULSE 76; RESP 15; TEMP 36.9; O2SAT 96
[2024-06-10 16:20] VITALS: BP 102/61; PULSE 76; RESP 15; TEMP 36.9; O2SAT 96
== END 2024-06-10 16:21 | disposition home or self-care (01) ==
PROVIDERS: Physician Assistant; Physician Assistant Medical; Emergency Provider Emergency Medicine; PCP Internal Medicine
DX: N39.0 Urinary tract infection, site not specified (principal); R31.9 Hematuria, unspecified; N13.30 Unspecified hydronephrosis; M54.50 Low back pain, unspecified
CPT/HCPCS: 36415; 74176; 80053; 81001; 81025; 85025; 87086; 87088; 87186; 99283; 99284

== ENCOUNTER 2024-12-19 09:42 | Emergency (ER) | payer OTHER, SELFPAY ==
[2024-12-19 09:44] VITALS: BP 129/60; PULSE 96; RESP 20; TEMP 36.2; O2SAT 97; BMI 42.4
[2024-12-19 09:59] VITALS: BP 117/59; PULSE 89; RESP 20; TEMP 36.7; O2SAT 96
--- NOTE | 2024-12-19 10:00 | ED.FEMALEGU ---
HPI - Female Genitourinary General Chief complaint: Urogenital-Female Stated complaint: blood in urine Time Seen by Provider: 12/19/24 09:49 Source: patient, RN notes reviewed and old records reviewed Mode of arrival: ambulatory History of Present Illness ED Provider: Asuncion Fairchild PA-C HPI Narrative: 44-year-old female with a past medical history of microcytic anemia, obesity, GERD, presenting to the ED complaining of painless gross hematuria x 4 days. Denies anticoagulation use. Denies dysuria, frequency, abdominal pain, back pain, flank pain, nausea, vomiting, fever Related Data Previous Rx's ?Medication ?Instructions ?Recorded semaglutide (weight loss) 0.25 0.25 mg (0.5 mL) subcut QWEEK 4 01/23/24 mg/0.5 mL subcutaneous pen weeks #2 mL injector (Wegovy) baclofen 10 mg tablet 10 mg PO BID PRN muscle spasm 30 01/31/24 days #60 tabs omeprazole 20 mg capsule,delayed 20 mg PO DAILY 90 days #90 caps 03/28/24 release cefuroxime axetil 250 mg tablet 250 mg PO Q12H 7 days #14 tabs 06/10/24 ibuprofen 800 mg tablet 800 mg PO Q8H PRN pain 30 days #90 09/09/24 tabs cephalexin 250 mg/5 mL oral 500 mg (10 mL) PO BID 5 days #100 12/19/24 suspension mL Allergies Allergy/AdvReac Type Severity Reaction Status Date / Time diphenhydramine Allergy Intermediate HIVES, Verified 12/19/24 09:46 [From BENADRYL] ANXIETY Benadryl Allergy Unknown HIVES,ANXIE Verified 12/19/24 09:46 TY Review of Systems Review of Systems: Yes all other systems are reviewed and are negative Constitutional: Constitutional: Reports as per [facility] Past Medical History Attestation statement: The following information was validated with the patient. Source: old records reviewed Medical History Neck pain Encounter for physical examination Microcytic anemia Morbid obesity Back pain GERD (gastroesophageal reflux disease) Chronic sinusitis Surgical History History of cervical spinal surgery UPJ (ureteropelvic junction) obstruction Family History Family History Father Diabetes CVD (cardiovascular disease) Hypertension Mother Diabetes Hypertension Maternal Grandmother Diabetes Hypertension Paternal Grandmother No problems noted. Paternal Grandfather No problems noted. Son In good health Son In good health Brother In good health Brother In good health Social History Social History Housing: Apartment Alcohol intake: current Alcohol intake frequency: holidays/special occasions only Alcohol type: beer Patient Tobacco Use Status: Never used Tobacco Smoked in Last 30 Days: No e-Cigarette/Vaping Use: Never Used Second Hand Smoke Exposure: No Use of substances other than those prescribed or required for medical reasons: No Advance Directives: No Advance Directives Information Provided: No Patient : No service: No Current occupational status: unemployed Gender identity: Female Cognitive needs: No Hearing needs: No Vision needs: Yes Physical Exam Vital Signs: Vital Signs: Last Vital Signs Temp 98.0 F 12/19/24 11:41 Pulse 89 12/19/24 11:41 Resp 20 12/19/24 11:41 BP 117/59 L 12/19/24 11:41 Pulse Ox 96 12/19/24 11:41 O2 Del Method Room Air 12/19/24 11:41 BMI result Body Mass Index 42.4 Const: General: cooperative, healthy appearing and no acute distress Orientation/consciousness: patient oriented x3 Limitations: no limitations HEENT: Head: Yes normal to inspection and Yes atraumatic Ears: hearing grossly normal bilaterally General nose exam: Normal external nose present Face and sinus: Yes normal facial exam Eyes: General: appearance normal, both eyes and all related structures EOM: EOMs intact bilaterally Neck: Neck: Yes normal visual inspection and Yes no meningeal signs Resp: Effort & Inspection: normal respiratory effort and no respiratory distress Cardio: Rate: regular rate GI: Inspection: Yes normal to inspection Palpation (GI): Soft to palpation, nontender, no guarding and not rigid : General: Yes no CVA tenderness Back/Spine/Pelvis: Back: no CVA tenderness Skin: Rashes: no rashes Wounds: no wounds Neuro: General: patient oriented x3, tone normal and no meningeal signs Cranial nerves: Yes CN's II-XII intact bilaterally Gait exam (Neuro): Normal gait present Extrem: General: Yes normal to inspection Course Course Course Narrative: 1107-no leukocytosis. H/H stable. Renal function WNL -urine red, with blood/RBCs and infected > patient unable to take pills. We will prescribe liquid antibiotic Results discussed with patient including worrisome signs and symptoms and strict return precautions, and when to return to the emergency department. They verbalized understanding and feel safe for discharge at this time. Medical Decision Making Medical Decision Making MDM Narrative: 44-year-old female with a past medical history of microcytic anemia, obesity, GERD, presenting to the ED complaining of painless gross hematuria x 4 days. On exam vital signs stable, NAD, nontoxic appearing, gross hematuria appreciated in urine cup. Concern for UTI vs renal stone vs ?Rhabdo. Rule out CAMILA. Lower suspicion for pyelonephritis, ovarian pathology including torsion, appendicitis/diverticulitis without tenderness on exam Plan: Labs, UA, urine , +/-imaging Please refer to course for remaining clinical decision making, interpretation of labs/imaging results, and discussions with consultants and/or family members. Differential Diagnosis Differential Diagnoses: The differential diagnosis associated with the presentation includes As above Admission/Observation Consideration of admission/observation: Escalation of care including admission/observation considered Lab Data [facility] Lab Attestation statement: I reviewed the patient's lab results. 12/19/24 10:08 12/19/24 10:08 Labs: Lab Results 12/19/24 12/19/24 Range/Units 09:58 10:08 WBC 9.5 (4.8-10.8) X10*3/uL RBC 4.88 (4.20-5.50) X10*6/uL Hgb 11.7 L (12.0-16.0) g/dl Hct 34.5 L (37.0-47.0) % MCV 70.7 L (80.0-98.0) fL MCH 24.0 L (27.0-33.0) pg MCHC 33.9 (31.0-35.0) g/dl RDW 15.0 (11.0-16.0) % Plt Count 250 (160-400) X10*3/uL MPV 9.8 (9.4-12.3) fL Immature Gran % (Auto) 0.3 (0.0-0.4) % Neut % (Auto) 69.8 (45-73) % Lymph % (Auto) 23.9 (20-40) % [place] % (Auto) 3.5 (2-11) % Eos % (Auto) 2.2 (0-4) % Baso % (Auto) 0.3 (0-2) % Lymph # (Auto) 2.3 (1.2-4.9) X10*3/uL [place] # (Auto) 0.3 (0.1-1.2) X10*3/uL Eos # (Auto) 0.2 (0.0-0.4) X10*3/uL Baso # (Auto) 0.0 (0.0-0.2) X10*3/uL Abs Immat Gran (auto) 0.03 (0.00-0.03) X10*3/uL Absolute Neuts (auto) 6.6 (2.0-8.3) x10*3/uL Absolute Nucleated RBC 0.000 (0.0-0.012) X10*3/uL Nucleated RBC % (auto) 0.0 (0.0-0.2) /100WBC Sodium 141 (135-145) mmol/L Potassium 3.7 (3.3-5.1) mmol/L Chloride 111 H (96-108) mmol/L Carbon Dioxide 22 (22-29) mmol/L Anion Gap 12 (12-20) BUN 13 (9-16) mg/dL Creatinine 0.80 (0.5-1.4) mg/dL Estim Creat Clear Calc 98.3 Estimated GFR > 60 Random Glucose 132 H (60-115) mg/dL Calcium 9.0 (8.4-10.2) mg/dL Magnesium 1.8 (1.6-2.6) mg/dL Total Bilirubin 0.6 (0.0-1.0) mg/dL Direct Bilirubin 0.2 (0.0-0.5) mg/dL AST 30 (5-31) U/L ALT 38 H (0-31) U/L Alkaline Phosphatase 86 (39-117) U/L Total Creatine Kinase 68 (26-140) U/L Total Protein 7.5 (6.5-8.0) g/dL Albumin 3.8 (3.5-5.0) g/dL Urine Color Red A Urine Appearance Cloudy Urine pH 7.0 (5.0-9.0) Ur Specific [place] 1.015 (1.005-1.025) Urine Protein 30 (1+) H (Neg-Trace) mg/dL Urine Glucose (UA) Negative (Negative) mg/dL Urine Ketones Negative (Negative) mg/dL Urine Blood Large (3+) H (Negative) Urine Nitrite Negative (Negative) Ur Leukocyte Esterase Moderate (2+) H (Negative) Urine RBC >20 H (0-2) /HPF Urine WBC 21-50 H (0-5) /HPF Ur Squamous Epith Cells 0-2 (0-2) /HPF Urine Bacteria 4+ (None Seen) Hyaline Casts 0-2 (0-2) /LPF Urine Test NEGATIVE (NEGATIVE) Radiology Impression Discussion of test interpretation with radiology: I have reviewed the radiologist's reading. External Record Review External record reviewed: Inpatient record, Office record, Outpatient record, Prior outpatient labs, Prior outpatient radiology, Primary care record and Outside ED record Tests considered The following testing was considered but not selected: As above Prescription Management I considered prescription management with: Antibiotic Chronic Conditions Patient?s care impacted by: Other Social Determinants Patient?s care significantly limited by Social Determinants of Health including: Other Social Determinant of Health Discharge Plan Discharge Clinical Impression: UTI (urinary tract infection) Patient Disposition: Home, Self-Care Instructions: Urinary Tract Infection in Women (DC) Additional Instructions: You have a urinary tract infection. Keflex as an antibiotic please take as prescribed Your blood work is reassuring Please have close follow-up with your primary care doctor Make sure you are staying hydrated at home, drink plenty of fluids If you develop abdominal pain, back pain, fever, difficulty or inability to urinate, vomiting or fever return to the ED Prescriptions: New cephalexin 250 mg/5 mL suspension for reconstitution 500 mg PO BID 5 Days Qty: 100 0RF No Action omeprazole 20 mg capsule,delayed release(DR/EC) 20 mg PO DAILY 90 Days Qty: 90 0RF ibuprofen 800 mg tablet 800 mg PO Q8H PRN (Reason: pain) 30 Days Qty: 90 1RF cefuroxime axetil 250 mg tablet 250 mg PO Q12H 7 Days Qty: 14 0RF Wegovy 0.25 mg/0.5 mL pen injector 0.25 mg subcut QWEEK 28 Days Qty: 2 0RF Rx Instructions: administer weeks 1 through 4 of therapy baclofen 10 mg tablet 10 mg PO BID PRN (Reason: muscle spasm) 30 Days Qty: 60 0RF Referrals: Chandrika Strickland MD [Primary Care Provider] - 1 week Interventions: ED Discharge Assessment Last Done: 12/19/24 11:41 Discharge Date/Time: 12/19/24 11:41 Print Language: Zimbabwean
[2024-12-19 10:11] LABS: MANUAL DIFF FLAG NO
[2024-12-19 10:11] LABS: UPreg QC Valid YES; Urine Pregnancy NEGATIVE (NEGATIVE)
[2024-12-19 10:13] LABS: Basophils Percent Auto 0.3 % (0-2); Eosinophils Absolute Auto 0.2 X10*3/uL (0.0-0.4); Eosinophils Percent Auto 2.2 % (0-4); Hematocrit 34.5 % (37.0-47.0); Hemoglobin 11.7 g/dl (12.0-16.0); Imm Gran Abs Auto 0.03 X10*3/uL (0.00-0.03); Imm Gran Pct Auto 0.3 % (0.0-0.4); Lymphocytes Absolute Auto 2.3 X10*3/uL (1.2-4.9); Lymphocytes Percent Auto 23.9 % (20-40); Mean Corpuscular HGB Conc 33.9 g/dl (31.0-35.0); Mean Corpuscular Volume 70.7 fL (80.0-98.0); Mean Platelet Volume 9.8 fL (9.4-12.3); Monocytes Absolute Auto 0.3 X10*3/uL (0.1-1.2); Monocytes Percent Auto 3.5 % (2-11); Neutrophils Absolute Auto 6.6 x10*3/uL (2.0-8.3); Neutrophils Percent Auto 69.8 % (45-73); Platelet Count 250 X10*3/uL (160-400); Red Blood Count 4.88 X10*6/uL (4.20-5.50); White Blood Count 9.5 X10*3/uL (4.8-10.8)
[2024-12-19 10:15] LABS: Appearance Urine Cloudy; Color Urine Red; Glucose Urine UA Negative (Negative); Leukocyte Esterase Urine Moderate (2+) (Negative); Nitrite Urine Negative (Negative); Specific Gravity - Urine 1.015 (1.005-1.025); UMIC TRIGGER UACC YES; Urine Blood Large (3+) (Negative); Urine Ketones Negative (Negative); Urine Protein 30 (1+) mg/dL (Neg-Trace)
[2024-12-19 10:20] LABS: Bacteria Urine 4+ (None Seen); Hyaline Casts Urine 0-2 /LPF (0-2); RBC Urine >20 /HPF (0-2); Squamous Epithelial Cell Urine 0-2 /HPF (0-2); UACC Culture Trigger YES; WBC Urine 21-50 /HPF (0-5)
[2024-12-19 10:45] LABS: Alanine Aminotransferase 38 U/L (0-31); Albumin Level 3.8 g/dL (3.5-5.0); Alkaline Phosphatase 86 U/L (39-117); Anion Gap 12 (12-20); Aspartate Amino Transferase 30 U/L (5-31); Bilirubin Direct 0.2 mg/dL (0.0-0.5); Bilirubin Total 0.6 mg/dL (0.0-1.0); Blood Urea Nitrogen 13 mg/dL (9-16); Carbon Dioxide 22 mmol/L (22-29); Chloride 111 mmol/L (96-108); Creatinine Clr Calc Pharmacy 98.3; Estimated Glomerular Filt Rate > 60; Glucose Random 132 mg/dL (60-115); Magnesium 1.8 mg/dL (1.6-2.6); Potassium 3.7 mmol/L (3.3-5.1); Sodium 141 mmol/L (135-145); Total Protein 7.5 g/dL (6.5-8.0)
[2024-12-19 11:41] VITALS: BP 117/59; PULSE 89; RESP 20; TEMP 36.7; O2SAT 96
== END 2024-12-19 11:41 | disposition home or self-care (01) ==
PROVIDERS: Physician Assistant; Emergency Provider Emergency Medicine; PCP Internal Medicine
DX: N39.0 Urinary tract infection, site not specified (principal); I10 Essential (primary) hypertension; Z79.899 Other long term (current) drug therapy
CPT/HCPCS: 36415; 80048; 80076; 81001; 81025; 82550; 83735; 85025; 87086; 99283; 99284

== ENCOUNTER 2024-12-29 08:28 | Emergency (ER) | payer OTHER, SELFPAY ==
--- NOTE | ~2024-12-29 | CT_ITS ---
EXAMINATION: CT ABDOMEN PELVIS WITHOUT IV CONTRAST HISTORY: gross hematuria, back pain, +uti COMPARISON: Comparison is made with the prior examination dated 06/10/2024. TECHNIQUE: CT scan of the abdomen and pelvis was performed without contrast using standard departmental protocol. Coronal and sagittal reformatted images were generated and reviewed. Oral contrast material was not administered per department protocol. This CT exam was performed with one or more of the following dose reduction techniques: automated exposure control, adjustment of the mA and/or kV according to patient size, use of iterative reconstruction technique. DLP: 803 mGy-cm FINDINGS: LOWER CHEST: The visualized lung bases are clear. There is no pleural effusion. CARDIOVASCULATURE: The heart is normal in size. There is no pericardial effusion. LIVER: The liver is normal in size and contour. The liver has an unremarkable unenhanced appearance. GALLBLADDER / BILE DUCTS: The gallbladder is unremarkable. There is no intra or extrahepatic biliary ductal dilatation. SPLEEN: The spleen is normal in size and has an unremarkable unenhanced appearance. PANCREAS: The pancreas has an unremarkable unenhanced appearance. ADRENAL GLANDS: Unremarkable. KIDNEYS/RETROPERITONEUM: No renal calculi are identified. Again seen is a 2.2 cm probable cyst at the medial aspect of the lower pole of the right kidney. Again seen is mild left renal cortical thinning and moderate hydronephrosis to the UPJ, likely secondary to a crossing vessel, without change. LYMPH NODES: No retroperitoneal lymphadenopathy is identified in the abdomen or pelvis. VASCULATURE: The abdominal aorta is normal in caliber. MESENTERY/PERITONEUM: No free fluid. No masses. There is no free intraperitoneal gas. STOMACH: The stomach is unremarkable. SMALL BOWEL: The small bowel is normal in caliber. COLON: The colon is unremarkable. APPENDIX: Normal. URINARY BLADDER/PELVIC ORGANS: The urinary bladder is collapsed, limiting evaluation. The uterus and ovaries have an unremarkable unenhanced appearance. BONES / SOFT TISSUES: No suspicious bony or soft tissue abnormalities. CT/CT abdomen pelvis wo IV con IMPRESSION: No significant change in appearance of probable chronic left UPJ obstruction. No acute abnormality is identified. Electronically signed by: Torin Norton MD 12/29/2024 12:27 PM EDT
[2024-12-29 08:37] VITALS: BP 109/61; PULSE 90; RESP 18; TEMP 37; O2SAT 99; BMI 43.7
[2024-12-29 09:13] LABS: Appearance Urine Turbid; Color Urine BROWN; Glucose Urine UA 100 mg/dL (Negative); Leukocyte Esterase Urine Trace (Negative); Nitrite Urine Positive (Negative); UMIC TRIGGER UACC YES; Urine Blood Large (3+) (Negative); Urine Ketones Negative (Negative); Urine Protein 30 (1+) mg/dL (Neg-Trace)
[2024-12-29 09:15] LABS: Bacteria Urine 4+ (None Seen); Hyaline Casts Urine 0-2 /LPF (0-2); RBC Urine >20 /HPF (0-2); Squamous Epithelial Cell Urine 0-2 /HPF (0-2); UACC Culture Trigger YES
--- NOTE | 2024-12-29 09:35 | ED.FEMALEGU ---
HPI - Female Genitourinary General Chief complaint: Urogenital-Female Stated complaint: Blood in urine Time Seen by Provider: 12/29/24 09:07 Source: patient, RN notes reviewed and old records reviewed Mode of arrival: ambulatory History of Present Illness ED Provider: Asuncion Fairchild PA-C [facility] Narrative: 44-year-old female with a past medical history microcytic anemia, obesity, GERD, presenting to the ED complaining continued gross hematuria since 12/16/2024. Patient was seen and treated in our ED on 12/19, diagnosed with UTI, prescribed Keflex which she completed without improvement. Reports associated dysuria and back pain at present. Also reports generalized fatigue / lightheadedness. Admits she had menstruation which ended on Saturday. Denies any vaginal bleeding/ discharge, abdominal pain, nausea, vomiting, diarrhea or anticoagulation use. Related Data Previous Rx's ?Medication ?Instructions ?Recorded semaglutide (weight loss) 0.25 0.25 mg (0.5 mL) subcut QWEEK 4 01/23/24 mg/0.5 mL subcutaneous pen weeks #2 mL injector (Wegovy) baclofen 10 mg tablet 10 mg PO BID PRN muscle spasm 30 01/31/24 days #60 tabs omeprazole 20 mg capsule,delayed 20 mg PO DAILY 90 days #90 caps 03/28/24 release cefuroxime axetil 250 mg tablet 250 mg PO Q12H 7 days #14 tabs 06/10/24 ibuprofen 800 mg tablet 800 mg PO Q8H PRN pain 30 days #90 09/09/24 tabs cephalexin 250 mg/5 mL oral 500 mg (10 mL) PO BID 5 days #100 12/19/24 suspension mL nitrofurantoin 50 mg/5 mL oral 100 mg (10 mL) PO BID 7 days #140 12/29/24 suspension mL Allergies Allergy/AdvReac Type Severity Reaction Status Date / Time diphenhydramine Allergy Intermediate HIVES, Verified 12/29/24 08:41 [From BENADRYL] ANXIETY Benadryl Allergy Unknown HIVES,ANXIE Verified 12/29/24 08:41 TY Review of Systems Review of Systems: Yes all other systems are reviewed and are negative Constitutional: Constitutional: Reports as per [facility] Past Medical History Attestation statement: The following information was validated with the patient. Source: old records reviewed Medical History Neck pain Encounter for physical examination Microcytic anemia Morbid obesity Back pain GERD (gastroesophageal reflux disease) Chronic sinusitis Surgical History History of cervical spinal surgery UPJ (ureteropelvic junction) obstruction Family History Family History Father Diabetes CVD (cardiovascular disease) Hypertension Mother Diabetes Hypertension Maternal Grandmother Diabetes Hypertension Paternal Grandmother No problems noted. Paternal Grandfather No problems noted. Son In good health Son In good health Brother In good health Brother In good health Social History Social History Housing: Apartment Alcohol intake: current Alcohol intake frequency: holidays/special occasions only Alcohol type: beer Patient Tobacco Use Status: Never used Tobacco e-Cigarette/Vaping Use: Never Used Second Hand Smoke Exposure: No service: No Current occupational status: unemployed Gender identity: Female Cognitive needs: No Hearing needs: No Vision needs: Yes Physical Exam Vital Signs: Vital Signs: Last Vital Signs Temp 97.8 F 12/29/24 13:19 Pulse 80 12/29/24 13:19 Resp 18 12/29/24 13:19 BP 111/57 L 12/29/24 13:19 Pulse Ox 98 12/29/24 13:19 O2 Del Method Room Air 12/29/24 13:19 BMI result Body Mass Index 43.7 Const: General: cooperative, healthy appearing and no acute distress Orientation/consciousness: patient oriented x3 Limitations: no limitations HEENT: Head: Yes normal to inspection and Yes atraumatic Ears: hearing grossly normal bilaterally General nose exam: Normal external nose present Face and sinus: Yes normal facial exam Eyes: General: appearance normal, both eyes and all related structures EOM: EOMs intact bilaterally Neck: Neck: Yes normal visual inspection and Yes no meningeal signs Resp: Effort & Inspection: normal respiratory effort and no respiratory distress Auscultation: clear to auscultation bilaterally Cardio: Rate: regular rate Heart sounds: S1 normal heart sound present and S2 normal heart sound present GI: Inspection: Yes normal to inspection Palpation (GI): Soft to palpation, nontender, no guarding and not rigid : General: Yes no CVA tenderness Back/Spine/Pelvis: Back: no CVA tenderness Skin: Rashes: no rashes Wounds: no wounds Neuro: General: patient oriented x3, tone normal and no meningeal signs Cranial nerves: Yes CN's II-XII intact bilaterally Gait exam (Neuro): Normal gait present Extrem: General: Yes normal to inspection Course Course Course Narrative: -1249-- no leukocytosis. H/H stable. Renal function WNL. CPK WNL. CT abdomen pelvis wo IV con IMPRESSION: No significant change in appearance of probable chronic left UPJ obstruction. No acute abnormality is identified. - UA with infection > will give p.o. antibiotics and urology follow-up Results discussed with patient including worrisome signs and symptoms and strict return precautions, and when to return to the emergency department. They verbalized understanding and feel safe for discharge at this time. Medications Administered Discontinued Medications Generic Name Dose Route Start Last Admin Trade Name Freq PRN Reason Stop Dose Admin Sodium Chloride 1,000 mls @ 999 mls/hr 12/29/24 09:30 12/29/24 11:37 Ns IV 12/29/24 10:30 Infused .Q1H1M ARNALDO Infusion Medical Decision Making Medical Decision Making [facility] Narrative: 44-year-old female with a past medical history microcytic anemia, obesity, GERD, presenting to the ED complaining continued gross hematuria since 12/16/2024 w/ associated dysuria and back pain at present. Also reports generalized fatigue / lightheadedness. On exam vital signs stable, NAD, nontoxic appearing, abdomen is soft and nontender, no CVAT. Concern for continued UTI vs pyelonephritis vs rhabdomyolysis vs ? renal stone. Rule out CAMILA and metabolic abnormalities. Lower suspicion for ACS / PE Plan: Labs, UA, CT AP, EKG, IVF, re-evaluate Please refer to course for remaining clinical decision making, interpretation of labs/imaging results, and discussions with consultants and/or family members. Differential Diagnosis Differential Diagnoses: The differential diagnosis associated with the presentation includes As above Admission/Observation Consideration of admission/observation: Escalation of care including admission/observation considered Lab Data [facility] Lab Attestation statement: I reviewed the patient's lab results. 12/29/24 09:47 12/29/24 09:47 Labs: Lab Results 12/29/24 12/29/24 12/29/24 Range/Units 08:59 09:47 10:14 WBC 7.9 (4.8-10.8) X10*3/uL RBC 4.60 (4.20-5.50) X10*6/uL Hgb 11.1 L (12.0-16.0) g/dl Hct 32.9 L (37.0-47.0) % MCV 71.5 L (80.0-98.0) fL MCH 24.1 L (27.0-33.0) pg MCHC 33.7 (31.0-35.0) g/dl RDW 15.0 (11.0-16.0) % Plt Count 264 (160-400) X10*3/uL MPV 9.8 (9.4-12.3) fL Immature Gran % (Auto) 0.3 (0.0-0.4) % Neut % (Auto) 65.1 (45-73) % Lymph % (Auto) 26.6 (20-40) % [place] % (Auto) 5.1 (2-11) % Eos % (Auto) 2.4 (0-4) % Baso % (Auto) 0.5 (0-2) % Lymph # (Auto) 2.1 (1.2-4.9) X10*3/uL [place] # (Auto) 0.4 (0.1-1.2) X10*3/uL Eos # (Auto) 0.2 (0.0-0.4) X10*3/uL Baso # (Auto) 0.0 (0.0-0.2) X10*3/uL Abs Immat Gran (auto) 0.02 (0.00-0.03) X10*3/uL Absolute Neuts (auto) 5.1 (2.0-8.3) x10*3/uL Absolute Nucleated RBC 0.000 (0.0-0.012) X10*3/uL Nucleated RBC % (auto) 0.0 (0.0-0.2) /100WBC Sodium 143 (135-145) mmol/L Potassium 4.0 (3.3-5.1) mmol/L Chloride 109 H (96-108) mmol/L Carbon Dioxide 27 (22-29) mmol/L Anion Gap 11 L (12-20) BUN 13 (9-16) mg/dL Creatinine 0.90 (0.5-1.4) mg/dL Estim Creat Clear Calc 85.5 Estimated GFR > 60 Random Glucose 102 (60-115) mg/dL Calcium 9.0 (8.4-10.2) mg/dL Total Bilirubin 0.3 (0.0-1.0) mg/dL Direct Bilirubin 0.1 (0.0-0.5) mg/dL AST 19 (5-31) U/L ALT 33 H (0-31) U/L Alkaline Phosphatase 81 (39-117) U/L Total Creatine Kinase 60 (26-140) U/L Total Protein 7.1 (6.5-8.0) g/dL Albumin 3.6 (3.5-5.0) g/dL Urine Color BROWN Urine Appearance Turbid Urine pH 7.0 (5.0-9.0) Ur Specific [place] 1.010 (1.005-1.025) Urine Protein 30 (1+) H (Neg-Trace) mg/dL Urine Glucose (UA) 100 H (Negative) mg/dL Urine Ketones Negative (Negative) mg/dL Urine Blood Large (3+) H (Negative) Urine Nitrite Positive H (Negative) Ur Leukocyte Esterase Trace H (Negative) Urine RBC >20 H (0-2) /HPF Urine WBC 11-20 H (0-5) /HPF Ur Squamous Epith Cells 0-2 (0-2) /HPF Urine Bacteria 4+ (None Seen) Hyaline Casts 0-2 (0-2) /LPF Urine Test NEGATIVE (NEGATIVE) Influenza Type A (PCR) NEGATIVE (Negative) Influenza Type B (PCR) NEGATIVE (Negative) RSV RNA Qual (PCR) NEGATIVE (Negative) SARS-CoV-2 RNA (RT-PCR) NEGATIVE (Negative) Independent Interpretation I performed an independent interpretation of an: EKG and CT Scan Radiology Impression Discussion of test interpretation with radiology: I have reviewed the radiologist's reading. External Record Review External record reviewed: Inpatient record, Office record, Outpatient record, Prior outpatient labs, Prior outpatient radiology, Primary care record and Outside ED record Tests considered The following testing was considered but not selected: As above Prescription Management I considered prescription management with: Antibiotic Chronic Conditions Patient?s care impacted by: Other Social Determinants Patient?s care significantly limited by Social Determinants of Health including: Other Social Determinant of Health Discharge Plan Discharge Clinical Impression: UTI (urinary tract infection) Patient Disposition: Home, Self-Care Instructions: Urinary Tract Infection in Women (DC) Additional Instructions: you have a urinary tract infection Macrobid as an antibiotic please take as prescribed until completion You need to follow up with urology specialist. Your CAT scan shows chronic left UPJ obstruction, you knew about this however you need to follow-up with a specialist If her symptoms persist or worsen you have abdominal pain, back pain, fever, you have difficulty urinating return to the ED Prescriptions: New nitrofurantoin 50 mg/5 mL suspension 100 mg PO BID 7 Days Qty: 140 0RF Rx Instructions: must administer with a meal/food No Action omeprazole 20 mg capsule,delayed release(DR/EC) 20 mg PO DAILY 90 Days Qty: 90 0RF ibuprofen 800 mg tablet 800 mg PO Q8H PRN (Reason: pain) 30 Days Qty: 90 1RF cephalexin 250 mg/5 mL suspension for reconstitution 500 mg PO BID 5 Days Qty: 100 0RF cefuroxime axetil 250 mg tablet 250 mg PO Q12H 7 Days Qty: 14 0RF Wegovy 0.25 mg/0.5 mL pen injector 0.25 mg subcut QWEEK 28 Days Qty: 2 0RF Rx Instructions: administer weeks 1 through 4 of therapy baclofen 10 mg tablet 10 mg PO BID PRN (Reason: muscle spasm) 30 Days Qty: 60 0RF Referrals: [facility] [place] U[facility] Services [Provider Group] - 1 week Chandrika Strickland MD [Primary Care Provider] - 3 days Interventions: ED Discharge Assessment Last Done: 12/29/24 13:19 Discharge Date/Time: 12/29/24 13:19 Print Language: Swiss
--- NOTE | 2024-12-29 09:38 | ECG_ITS ---
Test Reason : DIZZINESS Blood Pressure : */* mmHG Vent. Rate : 76 BPM Atrial Rate : 76 BPM P-R Int : 154 ms QRS Dur : 76 ms QT Int : 396 ms P-R-T Axes : 65 -4 -30 degrees QTcB Int : 445 ms Normal sinus rhythm Nonspecific ST and T wave abnormality Abnormal ECG When compared with ECG of 21-Jun-2022 18:48, No significant change was found Referred By: Asuncion Fairchild Electronically Signed By: WILLIAN GRISSOM MD
[2024-12-29 09:53] LABS: MANUAL DIFF FLAG NO
[2024-12-29 09:54] LABS: Basophils Percent Auto 0.5 % (0-2); Eosinophils Absolute Auto 0.2 X10*3/uL (0.0-0.4); Eosinophils Percent Auto 2.4 % (0-4); Hematocrit 32.9 % (37.0-47.0); Hemoglobin 11.1 g/dl (12.0-16.0); Imm Gran Abs Auto 0.02 X10*3/uL (0.00-0.03); Imm Gran Pct Auto 0.3 % (0.0-0.4); Lymphocytes Absolute Auto 2.1 X10*3/uL (1.2-4.9); Lymphocytes Percent Auto 26.6 % (20-40); Mean Corpuscular HGB Conc 33.7 g/dl (31.0-35.0); Mean Corpuscular Hemoglobin 24.1 pg (27.0-33.0); Mean Corpuscular Volume 71.5 fL (80.0-98.0); Mean Platelet Volume 9.8 fL (9.4-12.3); Monocytes Absolute Auto 0.4 X10*3/uL (0.1-1.2); Monocytes Percent Auto 5.1 % (2-11); Neutrophils Absolute Auto 5.1 x10*3/uL (2.0-8.3); Neutrophils Percent Auto 65.1 % (45-73); Platelet Count 264 X10*3/uL (160-400); White Blood Count 7.9 X10*3/uL (4.8-10.8)
[2024-12-29] MEDS: 0.9 % Sodium Chloride 1,000 ML 999 ML IV (10:12)
[2024-12-29 10:13] LABS: Alanine Aminotransferase 33 U/L (0-31); Albumin Level 3.6 g/dL (3.5-5.0); Anion Gap 11 (12-20); Aspartate Amino Transferase 19 U/L (5-31); Bilirubin Direct 0.1 mg/dL (0.0-0.5); Bilirubin Total 0.3 mg/dL (0.0-1.0); Blood Urea Nitrogen 13 mg/dL (9-16); Carbon Dioxide 27 mmol/L (22-29); Chloride 109 mmol/L (96-108); Creatinine Clr Calc Pharmacy 85.5; Estimated Glomerular Filt Rate > 60; Glucose Random 102 mg/dL (60-115); Sodium 143 mmol/L (135-145); Total Protein 7.1 g/dL (6.5-8.0)
[2024-12-29 11:06] LABS: Influenza A PCR NEGATIVE (Negative); Influenza B PCR NEGATIVE (Negative); Resp Syncy Virus RNA Qual PCR NEGATIVE (Negative); SARS COV2 PCR INHOUSE NEGATIVE (Negative)
[2024-12-29 11:38] VITALS: BP 139/80; PULSE 93; RESP 16; TEMP 37.1; O2SAT 100
[2024-12-29 11:42] LABS: UPreg QC Valid YES; Urine Pregnancy NEGATIVE (NEGATIVE)
[2024-12-29 12:50] LABS: Alkaline Phosphatase 81 U/L (39-117)
[2024-12-29 13:18] VITALS: BP 111/57; PULSE 80; RESP 18; TEMP 36.6; O2SAT 98
[2024-12-29 13:19] VITALS: BP 111/57; PULSE 80; RESP 18; TEMP 36.6; O2SAT 98
== END 2024-12-29 13:19 | disposition home or self-care (01) ==
PROVIDERS: Physician Assistant; Emergency Provider Emergency Medicine; PCP Internal Medicine
DX: N39.0 Urinary tract infection, site not specified (principal); R31.0 Gross hematuria; R53.83 Other fatigue; Z03.818 Encounter for observation for suspected exposure to other biological agents ruled out
CPT/HCPCS: 0241U; 36415; 74176; 80048; 80076; 81001; 81025; 82550; 85025; 87086; 87088; 87186; 93005; 96360; 99284; 99285

== ENCOUNTER → 2024-12-29 09:23 | Outpatient (BNV) | payer OTHER, SELFPAY | PROVIDERS: Emergency Provider Emergency Medicine; PCP Internal Medicine; Visit Provider Radiology Diagnostic Radiology | DX: N39.0 Urinary tract infection, site not specified (principal); M54.9 Dorsalgia, unspecified; R31.0 Gross hematuria | CPT/HCPCS: 74176 ==

== ENCOUNTER → 2024-12-29 09:38 | Outpatient (BNV) | payer OTHER, SELFPAY | PROVIDERS: Emergency Provider Emergency Medicine; PCP Internal Medicine; Visit Provider Internal Medicine Cardiovascular Disease | DX: R94.31 Abnormal electrocardiogram [ECG] [EKG] (principal); R42 Dizziness and giddiness | CPT/HCPCS: 93010 ==

== ENCOUNTER 2025-01-27 09:14 | Outpatient (AMB) | payer OTHER, SELFPAY ==
--- NOTE | 2025-01-27 09:35 | MHC.PC.OV ---
Vital Signs 01/27/25 09:36 Height 5 ft Weight 223 lb BMI 43.5 BP 112/78 Blood Pressure Location Lt brachial Position Sitting Intake Visit Reasons: Annual Exam Intake Note: Patient here for an annual physical exam Boarding Room Fixer Required: No Accompanied by: Self / Same As Patient Allergies diphenhydramine [From BENADRYL] Allergy (Intermediate, Verified 01/27/25 09:53) HIVES, ANXIETY Benadryl Allergy (Unknown, Verified 01/27/25 09:53) HIVES,ANXIETY Medication List - Last Reconciled 01/27/25 by Chandrika Avelar MD ibuprofen 800 mg PO Q8H PRN 30 days Tobacco use date assessed: 01/27/25 Dental Screening Dental Screen Date: 01/27/25 Did you have a dental visit in the last 12 months?: Yes Did you have a dental problem in the last 6 months where you did not have access to dental care?: No Was dental information given to patient?: Patient has dentist HPI HPI Comments History of Present Illness Details The patient is a 44-year-old female presenting for her physical exam with low back pain and muscle cramps. The low back pain has been persistent, with episodes of severe pain that radiate from the neck down to the lower back, occasionally affecting both legs. The patient reports using ibuprofen for pain relief, which provides some alleviation. She has been experiencing these symptoms for an unspecified duration, with some days being more debilitating than others. Muscle cramps have been frequent, particularly affecting the legs, and are associated with numbness and cramping. The patient has been advised to check magnesium levels as low magnesium may contribute to cramping. The patient has a history of a urinary tract infection, which was initially suspected to be a kidney stone due to hematuria. Further evaluation revealed a renal cyst, which is not considered a cause for concern at this time. The urinary tract infection has resolved following treatment. The patient also has a history of anemia, which requires monitoring. Family history includes heart disease and diabetes in the father, and diabetes and hypertension in the mother. [facility] Medical History (Updated 01/27/25 @ 10:10 by Chandrika Avelar MD) Obesity, morbid, BMI 50 or higher Neck pain Encounter for physical examination Microcytic anemia Morbid obesity Back pain GERD (gastroesophageal reflux disease) Chronic sinusitis Surgical History History of cervical spinal surgery UPJ (ureteropelvic junction) obstruction Family History Father Diabetes CVD (cardiovascular disease) Hypertension Mother Diabetes Hypertension Maternal Grandmother Diabetes Hypertension Paternal Grandmother No problems noted. Paternal Grandfather No problems noted. Son In good health Son In good health Brother In good health Brother In good health Social History Housing: Apartment Alcohol intake: current Alcohol intake frequency: holidays/special occasions only Alcohol type: beer Patient Tobacco Use Status: Never used Tobacco e-Cigarette/Vaping Use: Never Used Second Hand Smoke Exposure: No service: No Current occupational status: unemployed Gender identity: Female Cognitive needs: No Hearing needs: No Vision needs: Yes Female Reproductive History Menstrual Age of Menarche: 13 Questionnaire PHQ-9 Over the last 2 weeks, how often have you been bothered by any of the following problems? 1. Little interest or pleasure in doing things: nearly every day 2. Feeling down, depressed, or hopeless: not at all 3. Trouble falling or staying asleep, or sleeping too much: not at all 4. Feeling tired or having little energy: not at all 5. Poor appetite or overeating: not at all 6. Feeling bad about yourself - or that you are a failure or have let yourself or your family down: not at all 7. Trouble concentrating on things, such as reading the newspaper or watching television: not at all 8. Moving or speaking so slowly that other people could have noticed. Or the opposite - being so fidgety or restless that you have been moving around a lot more than usual: not at all 9. Thoughts that you would be better off or of hurting yourself in some way: not at all Total score: 3 Depression Screening Interpretation: Positive Depression Screening Follow-up: Existing condition and Follow-up Visit Requested Depression Screening Done: Yes 12146 - PHQ-9 Billing: Yes Source: Developed by Drs. Torni Suh, Carmen Glover, Marquise Weston and colleagues, with an educational toy from [employer]. Thrive Questionnaire Date Thrive assessed: 01/27/25 I am a: Parent/Caregiver What is your living situation today?: I have a steady place to live Within the past 12 months, did the food you bought not last and you didn't have the money to get more?: I choose not to answer this question Within the past 12 months, did you worry whether your food would run out before you got money to buy more?: Never true Do you have trouble paying for medicines?: No Do you have trouble getting transportation to medical appointments?: No Do you have trouble paying your heating and electricity bill?: No Do you have trouble taking care of your child, family member or friend?: No Do you have trouble with day-to-day activities such as bathing, preparing meals, shopping, managing finances, etc.?: No Are you currently unemployed and looking for a job?: No Are you interested in more education?: No Please select the resources that you would like help with: None Currently or been in a relationship where the following occur: No concerns reported THRIVE Score: 0 AUDIT C Alcohol Use Questionnaire (AUDIT-C) 1. How often do you have a drink containing alcohol?: Monthly or less 2. How many drinks containing alcohol do you have on a typical day when you are drinking?: 1 or 2 3. How often do you have six or more drinks on one occasion?: Never Total Score: 1 Score Reviewed/Action Taken: No DERRICK-7 AMB Questionnaire DERRICK-7 Date DERRICK - 7 assessed: 01/27/25 Feeling nervous, anxious, or on edge: 0 = Not at all Not being able to stop or control worryin = Not at all Worrying too much about different things: 0 = Not at all Trouble relaxin = Not at all Being so restless that it is hard to sit still: 0 = Not at all Becoming easily annoyed or irritable: 0 = Not at all Feeling afraid as if something awful might happen: 0 = Not at all Total DERRICK-7 score (0-4 normal; 5-9 mild; 10-14 moderate; 15-21 severe): 0 Source: Developed by Drs. Torin Suh, Carmen Glover, Marquise Weston and colleagues, with an educational toy from [employer]. DERRICK-7 Assessment Billing DERRICK-7 Assessment Tool: DERRICK-7 Assessment 85749 Review of Systems Const All systems reviewed & are unremarkable except as noted in HPI and below Card Denies chest pain at rest, Denies chest pain with activity, Denies edema, Denies irregular heart rhythm, Denies claudication, Denies dyspnea, Denies dyspnea on exertion, Denies orthopnea, Denies paroxysmal nocturnal dyspnea and Denies slow heart rate Resp Denies cough, Denies dyspnea and Denies dyspnea on exertion GI Denies abdominal pain, Denies change in bowel habits, Denies excessive flatus, Denies nausea and Denies vomiting Denies urinary incontinence, Denies urinary hesitancy and Denies urinary urgency Neuro Denies behavioral changes and Denies lack of coordination Psych Denies behavioral changes Endo Denies cold intolerance Physical exam (Primary Care) Vital Signs: Last Vital Signs BP 112/78 01/27/25 09:36 BMI result Body Mass Index 43.5 BMI Assessment/Plan discussion: High BMI High, discussed plan: lifestyle, weight reduction, dietary and physical activity Tobacco/Smoking Status: Tobacco use Status Tobacco use date assessed 01/27/25 01/27/25 09:42 Patient Tobacco Use Status Never used Tobacco 01/27/25 09:42 e-Cigarette/Vaping Use Never Used 01/27/25 09:42 PHQ-9: PHQ-9 Score PHQ-9: Total score 3 01/27/25 09:54 Depression Screening Interpretation: Positive Depression Screening Follow-up: Existing condition and Follow-up Visit Requested Thrive Assessment: Date of Thrive Assessment Date Thrive assessed 01/27/25 01/27/25 09:42 Currently or been in a relationship where the following occur: No concerns reported [facility] [place] Head: Yes normal to inspection, Yes normocephalic and Yes atraumatic Ears: external ears normal Eyes General: appearance normal, both eyes and all related structures Eyelids: Yes eyelids normal Conjunctivae: conjunctivae normal Neck Neck: Yes normal visual inspection and Yes supple Resp Effort & Inspection: normal respiratory effort Auscultation: clear to auscultation bilaterally Cardio Jugular venous distension: no JVD Rate: regular rate Rhythm: regular rhythm Heart sounds: S1 normal heart sound present and S2 normal heart sound present GI Inspection: Yes normal to inspection Palpation (GI): Soft to palpation and nontender Auscultation: normal bowel sounds Skin General skin exam: no rashes or lesions noted Neuro General: no focal motor deficits Extrem General: Yes full ROM Psych Appearance: grossly normal Coding Level of Care Code Est Pt Level 3 (63085) Est Pt Prev Care 40-64y(17332) Diagnoses Physical exam Z00.00 Cervical spondylosis M47.812 Thoracic spine pain M54.6 Lumbar pain M54.50 Morbid obesity E66.01 Additional Codes DERRCIK-7 Assessment Billing - DERRICK-7 Assessment Tool: DERRICK-7 Assessment 13052 ([id number]) PHQ-9 - 11247 - PHQ-9 Billing: Yes ([id number]) Time Spent (min) 35 Assessment & Plan Assessment & Plan (1) Physical exam: Code(s): Z00.00 - Encounter for general adult medical examination without abnormal findings Category: Medical (2) Cervical spondylosis: Code(s): M47.812 - Spondylosis without myelopathy or radiculopathy, cervical region Category: Medical (3) Thoracic spine pain: Code(s): M54.6 - Pain in thoracic spine Category: Medical (4) Lumbar pain: Code(s): M54.50 - Low back pain, unspecified Category: Medical (5) Morbid obesity: Code(s): E66.01 - Morbid (severe) obesity due to excess calories Category: Medical Plan The patient will receive a tetanus vaccination during the next visit to update her immunization status. For the low back pain, a referral to a neurologist is considered to evaluate the need for further management, including potential imaging or physical therapy. The patient is advised to continue using ibuprofen for pain relief as needed. Muscle cramps will be further evaluated with a magnesium level check to rule out electrolyte imbalances. The renal cyst will be monitored with periodic ultrasounds to ensure no changes occur. The patient is advised to follow up on anemia with regular blood tests to monitor hemoglobin levels. Patient was informed and verbally consented to the use of an ambient scribe for clinic note documentation during this visit. During the visit, we discussed the need for updating the tetanus vaccination and the importance of monitoring the renal cyst with periodic ultrasounds. We also talked about the management of low back pain, including the potential referral to a neurologist for further evaluation and the use of ibuprofen for symptomatic relief. The patient was informed about the need to check magnesium levels to address muscle cramps and to monitor anemia with regular blood tests. Orders: Orders XR cervical spine 2V Today M47.812 - Spondylosis without myelopathy or radiculopathy, cervical region XR thoracic spine 2V Today M54.6 - Pain in thoracic spine Complete Blood Count Auto Diff Today D64.9 - Anemia, unspecified IRON PROFILE Today D64.9 - Anemia, unspecified Vitamin B12 and Folate Today E53.8 - Deficiency of other specified B group vitamins Vitamin D 25-OH Total Today E55.9 - Vitamin D deficiency, unspecified MM tomosynthesis screening BI Today Z12.31 - Encounter for screening mammogram for malignant neoplasm of breast Thyroid Stimulating Hormone Today E66.01 - Morbid (severe) obesity due to excess calories Lipid Panel Today Z00.00 - Encounter for general adult medical examination without abnormal findings XR lumbar spine 2-3V Today M54.50 - Low back pain, unspecified Referrals Pain Management Referral M47.812 - Spondylosis without myelopathy or radiculopathy, cervical region, M54.50 - Low back pain, unspecified, M54.6 - Pain in thoracic spine Patient Instructions: - Schedule an appointment for a tetanus vaccination. - Continue taking ibuprofen as needed for back pain. - Follow up with a neurologist for back pain evaluation. - Get magnesium levels checked to address muscle cramps. - Monitor anemia with regular blood tests.
[2025-01-27 09:36] VITALS: BP 112/78; BMI 43.5
== END 2025-01-27 10:08 | disposition home or self-care (01) ==
LOC: HO.HMCH 09:14
PROVIDERS: PCP Internal Medicine; Visit Provider Internal Medicine
DX: Z00.00 Encounter for general adult medical examination without abnormal findings (principal); M47.812 Spondylosis without myelopathy or radiculopathy, cervical region; E66.01 Morbid (severe) obesity due to excess calories; Z68.41 Body mass index [BMI] 40.0-44.9, adult; M54.6 Pain in thoracic spine; M54.50 Low back pain, unspecified

== ENCOUNTER → 2025-01-27 09:14 | Outpatient (BNVA) | payer OTHER, SELFPAY | PROVIDERS: PCP Internal Medicine; Visit Provider Internal Medicine | DX: Z00.00 Encounter for general adult medical examination without abnormal findings (principal); M47.812 Spondylosis without myelopathy or radiculopathy, cervical region; M54.6 Pain in thoracic spine; M54.50 Low back pain, unspecified; R25.2 Cramp and spasm; N28.1 Cyst of kidney, acquired; D64.9 Anemia, unspecified; E66.01 Morbid (severe) obesity due to excess calories; E53.8 Deficiency of other specified B group vitamins; Z87.440 Personal history of urinary (tract) infections; Z68.41 Body mass index [BMI] 40.0-44.9, adult | CPT/HCPCS: 96127; 99212; 99396 ==

== ENCOUNTER 2025-02-04 10:43 | Outpatient (AMB) | payer OTHER, SELFPAY ==
--- NOTE | 2025-02-04 10:46 | MHC.OFFVIS ---
Intake Visit Reasons: hydronephrosis/UTI/hematuria/PVR Intake Note: Pt presents to the office today for a new patient visit for hydronephrosis/UTI/hematuria. Urology Meds:None Blood thinners:None PVR:8ml Accompanied by: Son Allergies diphenhydramine (From BENADRYL) Allergy (Intermediate, Verified 02/04/25 10:46) HIVES, ANXIETY Benadryl Allergy (Unknown, Verified 02/04/25 10:46) HIVES,ANXIETY Medication List - Last Reconciled 02/04/25 by Cassi Ireland MD ciprofloxacin (Cipro) 500 mg (5 mL) PO BID 10 days ibuprofen 800 mg PO Q8H PRN 30 days HPI Comments Details: 02/04/25-- History of Present Illness - The patient is a 44-year-old female presenting with left ureteropelvic junction obstruction and associated urinary symptoms. - The patient was seen in the emergency room on 12/29/24 for hematuria and was diagnosed with a urinary tract infection. - A CT scan performed on 12/29/24 revealed left ureteropelvic junction obstruction without renal calculi. - Urine culture showed E. coli resistant to Bactrim. - The patient reports a history of kidney inflammation and hospitalization in 2017 due to an infection. - The patient experiences fatigue associated with hematuria but denies fever, pain, or foul-smelling urine. Urinary Symptoms Review - Hematuria noted with fatigue but no fever, pain, or foul odor. Results - CT scan on 12/29/24: Left ureteropelvic junction obstruction, no renal calculi. - Urine culture: E. coli resistant to Bactrim. - Urinalysis: Nitrate positive. Discussion Notes I discussed with the patient the findings of the CT scan showing left ureteropelvic junction obstruction and the absence of renal calculi. I explained the urine culture results indicating E. coli resistant to Bactrim and the need for further testing, including a Lasix renal scan and hematuria workup. We discussed the plan to perform a cystoscopy in the office with lidocaine jelly for comfort and the importance of obtaining a urine sample for further analysis. [facility] Medical History Obesity, morbid, BMI 50 or higher Neck pain Encounter for physical examination Microcytic anemia Morbid obesity Back pain GERD (gastroesophageal reflux disease) Chronic sinusitis Surgical History History of cervical spinal surgery UPJ (ureteropelvic junction) obstruction Family History Father Diabetes CVD (cardiovascular disease) Hypertension Mother Diabetes Hypertension Maternal Grandmother Diabetes Hypertension Paternal Grandmother No problems noted. Paternal Grandfather No problems noted. Son In good health Son In good health Brother In good health Brother In good health Social History Housing: Apartment Alcohol intake: current Alcohol intake frequency: holidays/special occasions only Alcohol type: beer Patient Tobacco Use Status: Never used Tobacco e-Cigarette/Vaping Use: Never Used Second Hand Smoke Exposure: No service: No Current occupational status: unemployed Gender identity: Female Cognitive needs: No Hearing needs: No Vision needs: Yes Female Reproductive History Menstrual Age of Menarche: 13 Review of Systems Const All systems reviewed & are unremarkable except as noted in HPI and below Reports no additional complaints Eyes Reports no additional complaints ENT Reports no additional complaints Card Reports no additional complaints Resp Reports no additional complaints GI Reports no additional complaints Reports as per HPI Musc Reports no additional complaints Skin/Breast Reports system reviewed and no additional complaints, except as documented Neuro Reports no additional complaints Psych Reports no additional complaints Endo Reports no additional complaints Khai/Lymph Reports no additional complaints Aller/Immun Reports no additional complaints Physical Exam Const General: cooperative, healthy appearing and no acute distress Nutritional Appearance: overweight Orientation/consciousness: patient oriented x3 HEENT Head: Yes normal to inspection, Yes normocephalic and Yes atraumatic Eyes Conjunctivae: conjunctivae normal Neck Neck: Yes normal visual inspection and Yes trachea midline Chest Chest palpation & inspection: normal inspection of the chest Resp Effort & Inspection: normal respiratory effort GI Inspection: Yes normal to inspection Neuro General: patient oriented x3 Psych Appearance: grossly normal Office Procedures Post Void Residual Post Residual Void Post Void Residual (PVR): 8 [id number] Void Residual by ultrasound Results AMB Urinalysis, Automated UA Leukoctes 125 Estelita/uL Last Edit by Elvia Beltran CMA on 02/04/25 11:30 UA Nitrite Positive Last Edit by Elvia Beltran CMA on 02/04/25 11:30 UA Urobilinogen 0.2 mg/dL Last Edit by Elvia Beltran CMA on 02/04/25 11:30 UA Protein 15 mg/dL Last Edit by Elvia Beltran CMA on 02/04/25 11:30 UA pH 6.5 Last Edit by Elvia Beltran CMA on 02/04/25 11:30 UA Blood 0 Sid/uL Last Edit by Elvia Beltran CMA on 02/04/25 11:30 UA Specific Wilmot 1.010 Last Edit by Elvia Beltran CMA on 02/04/25 11:30 UA Ketone Negative Last Edit by Elvia Beltran CMA on 02/04/25 11:30 UA Bilirubin 0 mg/dL Last Edit by Elvia Beltran CMA on 02/04/25 11:30 UA Glucose 0 mg/dL Last Edit by Elvia Beltran CMA on 02/04/25 11:30 Results Reviewed Results Reviewed: Laboratory Last Values Urine pH (Auto) 6.5 02/04/25 10:50 Specific Wilmot (Auto) 1.010 02/04/25 10:50 Urine Protein (Auto) 15 mg/dL 02/04/25 10:50 Glucose (UA)(Auto) 0 mg/dL 02/04/25 10:50 Urine Ketones (Auto) Negative 02/04/25 10:50 Urine Blood (Auto) 0 Sid/uL 02/04/25 10:50 Urine Nitrite (Auto) Positive 02/04/25 10:50 Urine Bilirubin (Auto) 0 mg/dL 02/04/25 10:50 Urine Urobilinogen (Auto) 0.2 mg/dL 02/04/25 10:50 Leukocyte Esterase (Auto) 125 Estelita/uL 02/04/25 10:50 Assessment & Plan Assessment & Plan (1) Obstruction of right ureteropelvic junction (UPJ): Code(s): N13.5 - Crossing vessel and stricture of ureter without hydronephrosis Category: Medical Plan Plan - Order Lasix renal scan to assess kidney function and check for any obstruction. - Perform hematuria workup to determine the cause of blood in the urine. - Conduct cystoscopy in the office using lidocaine jelly for patient comfort. - Prescribe Cipro 500 mg twice daily for 7 days to treat urinary tract infection. - Send urine sample for culture and cytology to further evaluate infection and hematuria. Orders: Orders AMB Post Void Residual by ultrasound Today N39.0 - Urinary tract infection, site not specified AMB Urinalysis Automated Today N39.0 - Urinary tract infection, site not specified Urine Culture Today Z13.9 - Encounter for screening, unspecified Urine Cytology Today Z13.9 - Encounter for screening, unspecified NM renal flow w pharm int Today N13.5 - Crossing vessel and stricture of ureter without hydronephrosis Medications: New ciprofloxacin (Cipro) 500 mg (5 mL) PO BID 100 mL 0RF 10 days Patient Instructions: The patient had an opportunity to ask questions regarding treatment plan. The patient expressed understanding and agreement with the above treatment plan. The patient is aware they should contact our office by phone for worsening of their current condition or the appearance of new symptoms. Compliance is encouraged with any medications and followup testing that is ordered. It is a privilege to be allowed the opportunity to participate in the urologic care of your patient. If you have any questions or concerns regarding treatment for the above conditions please do not hesitate to contact me. The office telephone contact is [phone]. This note is constructed in part using voice recognition software. While every effort has been made to ensure accuracy multi skilled operator errors may have been included. Yours sincerely, Cassi Ireland MD Scribe Plan - Not visible on output: Patient was informed and verbally consented to the use of an ambient scribe for clinic note documentation during this visit. Coding Diagnoses Obstruction of right ureteropelvic junction (UPJ) N13.5 CPT Codes Post Residual Void - PVR CPT Code: 82968-Tetd Void Residual by ultrasound ([id number])
== END 2025-02-04 11:44 | disposition home or self-care (01) ==
LOC: HO.HUSH 10:44
PROVIDERS: PCP Internal Medicine; Visit Provider Urology
DX: N39.0 Urinary tract infection, site not specified (principal)

== ENCOUNTER 2025-02-04 10:43 | Outpatient (REF) | payer OTHER, SELFPAY ==
[2025-02-04 17:53] LABS: Urine Cytology See Pathology rpt
== END 2025-02-04 10:44 | disposition home or self-care (01) ==
LOC: HO.LAB 10:43
PROVIDERS: PCP Internal Medicine; Visit Provider Urology
DX: N13.5 Crossing vessel and stricture of ureter without hydronephrosis (principal); N39.0 Urinary tract infection, site not specified; B96.20 Unspecified Escherichia coli [E. coli] as the cause of diseases classified elsewhere; Z16.29 Resistance to other single specified antibiotic; R31.9 Hematuria, unspecified
CPT/HCPCS: 51798; 81003; 87086; 87088; 87186; 88112; 99202

== ENCOUNTER → 2025-04-01 09:40 | Outpatient (REF) | payer OTHER, SELFPAY ==
--- NOTE | ~2025-04-01 | NM_ITS ---
EXAMINATION: NM KIDNEY FLOW FUNCTION WITH RX HISTORY: N13.5 - Crossing vessel and stricture of ureter without hydronephrosis. TECHNIQUE: A renogram and renal scan were performed following intravenous administration of 10 mCi technetium 99m-DTPA. 40 mg IV Lasix was administered 30 minutes after administration of the radiopharmaceutical. The examination was terminated 12 minutes after injection of intravenous Lasix as the patient needed to urgently void. COMPARISON: Correlation is made with an unenhanced CT of the abdomen dated 12/29/2024. FINDINGS: There is slightly decreased blood flow to the left kidney. On the right, there is normal uptake and excretion of the radiopharmaceutical with a half-life of 6.9 minutes. There is complete emptying of the right renal pelvis. On the left, there is excretion of activity into a dilated renal pelvis. No emptying of the renal pelvis or left ureteral activity is identified, although the examination was terminated prematurely. NM/NM renal flow w pharm int IMPRESSION: The examination is nondiagnostic as the study was terminated prematurely only 12 minutes after Lasix administration. Electronically signed by: Torin Norton MD 04/01/2025 11:51 AM EDT
== END ==
LOC: HO.NUCMED 09:40
PROVIDERS: PCP Internal Medicine; Visit Provider Urology
DX: N13.5 Crossing vessel and stricture of ureter without hydronephrosis (principal)
CPT/HCPCS: 78708; A9539; J1938

== ENCOUNTER → 2025-04-01 09:45 | Outpatient (BNV) | payer OTHER, SELFPAY | PROVIDERS: PCP Internal Medicine; Visit Provider Radiology Diagnostic Radiology | DX: N13.5 Crossing vessel and stricture of ureter without hydronephrosis (principal) | CPT/HCPCS: 78708 ==

== ENCOUNTER 2025-04-07 10:24 | Outpatient (REF) | payer OTHER, SELFPAY ==
--- NOTE | ~2025-04-07 | MM_ITS ---
EXAMINATION: MM SCREENING DIGITAL BREAST TOMOSYNTHESIS, BILATERAL CLINICAL INFORMATION: Screening. Asymptomatic. COMPARISON: Mammography: Baseline. TECHNIQUE: Digital breast mammography with tomosynthesis is performed in both the craniocaudal and mediolateral oblique views along with computer-aided detection (CAD). FINDINGS: There are scattered areas of fibroglandular density (ACR BI-RADS breast composition Category b). There are no significant masses, abnormal calcifications, or other abnormalities. MM/MM tomosynthesis screening BI IMPRESSION: No mammographic evidence of malignancy. ASSESSMENT: BI-RADS BI-RADS 1 - Negative RECOMMENDATION: Routine annual mammography screening. 1 year F/U This examination should not preclude the clinical evaluation of a suspicious palpable abnormality. This patient's information was entered into a reminder system with a target due date for their next mammogram. Electronically signed by: Shelley Lopez DO 04/08/2025 04:55 PM EDT
== END 2025-04-07 10:25 | disposition home or self-care (01) ==
LOC: HO.MAMMO 10:24
PROVIDERS: PCP Internal Medicine; Visit Provider Internal Medicine
DX: Z12.31 Encounter for screening mammogram for malignant neoplasm of breast (principal)
CPT/HCPCS: 77063; 77067

== ENCOUNTER → 2025-04-07 10:30 | Outpatient (BNV) | payer OTHER, SELFPAY | PROVIDERS: PCP Internal Medicine; Visit Provider Internal Medicine | DX: Z12.31 Encounter for screening mammogram for malignant neoplasm of breast (principal) | CPT/HCPCS: 77063; 77067 ==

== ENCOUNTER 2025-06-01 08:42 | Outpatient (REF) | payer OTHER, SELFPAY ==
--- NOTE | ~2025-06-01 | XR_ITS ---
EXAMINATION: XR THORACIC SPINE CLINICAL INFORMATION: M54.6 - Pain in thoracic spine COMPARISON: None available. TECHNIQUE: 3 views of the thoracic spine were obtained. FINDINGS: There is no scoliosis. There is a normal thoracic kyphosis. There is normal alignment. There is no fracture, compression deformity, or suspicious bone lesion. Disc spaces are normal. Facets are normally aligned. The imaged mediastinal contents, lungs, and soft tissues appear normal. XR/XR thoracic spine 2V IMPRESSION: Normal thoracic spine radiographs. Electronically signed by: Bharath Churchill MD 06/01/2025 10:59 AM EDT
--- NOTE | ~2025-06-01 | XR_ITS ---
EXAMINATION: XR CERVICAL SPINE CLINICAL INFORMATION: M47.812 - Spondylosis without myelopathy or radiculopathy, cervical region COMPARISON: 02/27/2022. TECHNIQUE: 3 views of the cervical spine were obtained. FINDINGS: There is suboptimal visualization of C7 and T1 due to patient habitus. There is a normal lordosis. There is no scoliosis. There is no subluxation. 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 There has been prior fusion of the occiput with C1 and C2 with cerclage wires. The craniocervical junction and C1-2 articulation appear normally aligned. No fracture, compression deformity, or suspicious bone lesion. Disc spaces demonstrate very mild degenerative changes particularly at C2-3 and C3-4. Facets are normally aligned. There are mild to moderate degenerative hypertrophic facet changes bilaterally. There is no prevertebral soft tissue swelling. XR/XR cervical spine 2V IMPRESSION: 1. Prior fusion of the occiput with C1 and C2, with cerclage wires present. 2. Very mild degenerative disc changes C2-3 and C3-4. 3. Multilevel degenerative facet changes. 4. Overall no significant change from 02/27/2022. Electronically signed by: Bharath Churchill MD 06/01/2025 11:07 AM EDT
--- NOTE | ~2025-06-01 | XR_ITS ---
EXAMINATION: XR LUMBOSACRAL SPINE CLINICAL INFORMATION: M54.50 - Low back pain, unspecified COMPARISON: None available. TECHNIQUE: Three views of the lumbosacral spine. FINDINGS: There is no significant scoliosis. There is a mildly exaggerated lordosis. There is normal alignment without subluxation. There is no fracture, compression deformity, or suspicious bone lesion. Disc spaces are maintained. Facets are normally aligned. There are mild degenerative facet changes at L4-S1. The sacrum is intact. The SI joints appear normal. No soft tissue abnormalities. XR/XR lumbar spine 2-3V IMPRESSION: 1. No acute findings of the lumbar spine. 2. Mild degenerative facet changes spanning L4-S1. Electronically signed by: Bharath Churchill MD 06/01/2025 11:28 AM EDT
[2025-06-01 08:58] LABS: MANUAL DIFF FLAG NO
[2025-06-01 10:09] LABS: Hematocrit 35.6 % (37.0-47.0); Hemoglobin 11.6 g/dl (12.0-16.0); Imm Gran Abs Auto 0.03 X10*3/uL (0.00-0.03); Imm Gran Pct Auto 0.3 % (0.0-0.4); Lymphocytes Absolute Auto 2.6 X10*3/uL (1.2-4.9); Mean Corpuscular HGB Conc 32.6 g/dl (31.0-35.0); Mean Corpuscular Hemoglobin 23.4 pg (27.0-33.0); Mean Corpuscular Volume 71.8 fL (80.0-98.0); NRBC Abs Auto 0.000 X10*3/uL (0.0-0.012); NRBC Pct Auto 0.0 /100WBC (0.0-0.2); Platelet Count 277 X10*3/uL (160-400); Red Blood Count 4.96 X10*6/uL (4.20-5.50); White Blood Count 8.9 X10*3/uL (4.8-10.8)
[2025-06-01 10:42] LABS: Cholesterol 181 mg/dL (<200); HDL Cholesterol 49 mg/dL (>40); Iron 44 mcg/dL (30-160); Percent Iron Saturation 18 % (15-50); Total Iron Binding Capacity 245 mcg/dL (228-428); Triglycerides 70 mg/dL (<150); Unsaturated Iron Binding 201 ug/dL
[2025-06-01 11:07] LABS: Thyroid Stimulating Hormone 1.54 uIU/mL (0.32-4.0)
[2025-06-01 11:10] LABS: Folate 9.1 ng/mL (> or = 4.0); Vitamin B12 347 pg/mL (200-900)
== END 2025-06-01 08:43 | disposition home or self-care (01) ==
LOC: HO.XRAY 08:42
PROVIDERS: PCP Internal Medicine; Visit Provider Internal Medicine
DX: Z00.00 Encounter for general adult medical examination without abnormal findings (principal); M47.812 Spondylosis without myelopathy or radiculopathy, cervical region; D64.9 Anemia, unspecified; E53.8 Deficiency of other specified B group vitamins; E66.01 Morbid (severe) obesity due to excess calories; E55.9 Vitamin D deficiency, unspecified; M54.6 Pain in thoracic spine; M54.50 Low back pain, unspecified
CPT/HCPCS: 36415; 72040; 72070; 72100; 80061; 82306; 82607; 82746; 83540; 84443; 85025

== ENCOUNTER → 2025-06-01 08:59 | Outpatient (BNV) | payer OTHER, SELFPAY | PROVIDERS: PCP Internal Medicine; Visit Provider Radiology Diagnostic Radiology | DX: M50.31 Other cervical disc degeneration, high cervical region (principal); M54.50 Low back pain, unspecified; M54.6 Pain in thoracic spine | CPT/HCPCS: 72040; 72070; 72100 ==

== ENCOUNTER 2025-06-02 10:43 | Outpatient (AMB) | payer OTHER, SELFPAY ==
[2025-06-02 10:52] VITALS: BP 126/80; PULSE 86; O2SAT 95; BMI 44.8
--- NOTE | 2025-06-02 10:52 | A.OFFPC_ITS ---
Vital Signs 06/02/25 10:52 Height 5 ft Weight 229 lb 4 oz BMI 44.8 BP 126/80 Blood Pressure Location Lt brachial Position Sitting Pulse 86 Pulse Source Pulse Oximeter Pulse Oximetry (%) 95 Oxygen Delivery Method Room Air Intake Visit Reasons: anemia, depression Second Ride Fare Collector Required: No Accompanied by: Self / Same As Patient Allergies diphenhydramine (From BENADRYL) Allergy (Intermediate, Verified 06/02/25 11:14) HIVES, ANXIETY Benadryl Allergy (Unknown, Verified 06/02/25 11:14) HIVES,ANXIETY Medication List - Last Reconciled 06/02/25 by Chandrika Avelar MD ciprofloxacin (Cipro) 500 mg (5 mL) PO BID 10 days ibuprofen 800 mg PO Q8H PRN 30 days Tobacco use date assessed: 06/02/25 Dental Screening Dental Screen Date: 06/02/25 Did you have a dental visit in the last 12 months?: Yes Did you have a dental problem in the last 6 months where you did not have access to dental care?: No Was dental information given to patient?: Patient has dentist HPI HPI Comments History of Present Illness Details The patient is a 44-year-old female presenting with depression and chronic pain management. The patient has a history of depression, which is currently well-controlled and not significantly impacting her daily activities. She has been diagnosed with vitamin D deficiency and anemia, with her hemoglobin level improving to 11.6 g/dL. Management includes dietary adjustments and supplements. Chronic lumbar and cervical pain due to arthritis affects her ability to work as a [employer]st. She uses ibuprofen for pain and has a follow-up appointment for pain management. The patient is morbidly obese with a BMI of 44, and recent weight gain has been noted. Weight loss surgery is being considered due to her high BMI. Neuropathic pain in the right foot is described as a burning sensation, with additional pain in the left heel when standing. [facility] Medical History Cervical cancer screening Encounter for IUD removal Breast cancer screening Hypertension Obesity, morbid, BMI 50 or higher Neck pain Encounter for physical examination Microcytic anemia Morbid obesity Back pain GERD (gastroesophageal reflux disease) Chronic sinusitis Surgical History History of cervical spinal surgery UPJ (ureteropelvic junction) obstruction Family History Father Diabetes CVD (cardiovascular disease) Hypertension Mother Diabetes Hypertension Maternal Grandmother Diabetes Hypertension Paternal Grandmother No problems noted. Paternal Grandfather No problems noted. Son In good health Son In good health Brother In good health Brother In good health Social History Housing: Apartment Alcohol intake: current Alcohol intake frequency: holidays/special occasions only Alcohol type: beer Patient Tobacco Use Status: Never used Tobacco e-Cigarette/Vaping Use: Never Used Second Hand Smoke Exposure: No service: No Current occupational status: unemployed Gender identity: Female Cognitive needs: No Hearing needs: No Vision needs: Yes Female Reproductive History Menstrual Age of Menarche: 13 Questionnaire Thrive Questionnaire Date Thrive assessed: 01/27/25 I am a: Parent/Caregiver What is your living situation today?: I have a steady place to live Within the past 12 months, did the food you bought not last and you didn't have the money to get more?: I choose not to answer this question Within the past 12 months, did you worry whether your food would run out before you got money to buy more?: I choose not to answer this question Do you have trouble paying for medicines?: No Do you have trouble getting transportation to medical appointments?: No Do you have trouble paying your heating and electricity bill?: No Do you have trouble taking care of your child, family member or friend?: No Do you have trouble with day-to-day activities such as bathing, preparing meals, shopping, managing finances, etc.?: No Are you currently unemployed and looking for a job?: No Are you interested in more education?: No Please select the resources that you would like help with: None Currently or been in a relationship where the following occur: I choose not to answer THRIVE Score: 0 AUDIT C Alcohol Use Questionnaire (AUDIT-C) 1. How often do you have a drink containing alcohol?: Never 3. How often do you have six or more drinks on one occasion?: Never Total Score: 0 DERRICK-7 AMB Questionnaire DERRICK-7 Date DERRICK - 7 assessed: 01/27/25 Feeling nervous, anxious, or on edge: 0 = Not at all Source: Developed by Drs. Torin Suh, Carmen Glover, Marquise Weston and colleagues, with an educational toy from [employer]. Review of Systems Const All systems reviewed & are unremarkable except as noted in HPI and below Card Denies chest pain at rest, Denies chest pain with activity, Denies edema, Denies irregular heart rhythm, Denies claudication, Denies dyspnea, Denies dyspnea on exertion, Denies orthopnea, Denies paroxysmal nocturnal dyspnea and Denies slow heart rate Resp Denies cough, Denies dyspnea and Denies dyspnea on exertion GI Denies abdominal pain, Denies change in bowel habits, Denies excessive flatus, Denies nausea and Denies vomiting Physical exam (Primary Care) Vital Signs: Last Vital Signs Pulse 86 06/02/25 10:52 BP 126/80 06/02/25 10:52 Pulse Ox 95 06/02/25 10:52 Oxygen Delivery Method Room Air 06/02/25 10:52 BMI result Body Mass Index 44.8 BMI Assessment/Plan discussion: High BMI High, discussed plan: lifestyle, weight reduction, dietary and physical activity Tobacco/Smoking Status: Tobacco use Status Tobacco use date assessed 06/02/25 06/02/25 10:56 Patient Tobacco Use Status Never used Tobacco 06/02/25 10:56 e-Cigarette/Vaping Use Never Used 06/02/25 10:56 Thrive Assessment: Date of Thrive Assessment Date Thrive assessed 01/27/25 06/02/25 10:56 Currently or been in a relationship where the following occur: I choose not to answer Resp Effort & Inspection: normal respiratory effort Auscultation: clear to auscultation bilaterally Cardio Jugular venous distension: no JVD Rate: regular rate Rhythm: regular rhythm Heart sounds: S1 normal heart sound present and S2 normal heart sound present Extrem General: Yes full ROM Coding Level of Care Code Est Pt Level 4 (35202) Diagnoses Bilateral leg paresthesia R20.2 Morbid obesity E66.01 Microcytic anemia D50.9 Lumbar degenerative disc disease M51.369 DDD (degenerative disc disease), cervical M50.30 Time Spent (min) 20 Assessment & Plan Assessment & Plan (1) Bilateral leg paresthesia: Code(s): R20.2 - Paresthesia of skin Category: Medical (2) Morbid obesity: Code(s): E66.01 - Morbid (severe) obesity due to excess calories Category: Medical (3) Microcytic anemia: Code(s): D50.9 - Iron deficiency anemia, unspecified Category: Medical (4) Lumbar degenerative disc disease: Code(s): M51.369 - Other intervertebral disc degeneration, lumbar region without mention of lumbar back pain or lower extremity pain Category: Medical (5) DDD (degenerative disc disease), cervical: Code(s): M50.30 - Other cervical disc degeneration, unspecified cervical region Category: Medical Plan Plan Patient was informed and verbally consented to the use of an ambient scribe for clinic note documentation during this visit. 1. Depression The patient's depression is currently well-controlled, and no changes to her cu rrent management plan were discussed. 2. Vitamin D Deficiency The patient is advised to continue with dietary adjustments and supplements to manage her vitamin D deficiency. 3. Anemia The patient's anemia has improved, with a hemoglobin level of 11.6 g/dL, and she should continue current management strategies. 4. Lumbar Arthritis The patient is advised to continue using ibuprofen as needed for lumbar arthritis pain and to attend her upcoming pain management appointment. 5. Cervical Arthritis The patient should continue current pain management strategies for cervical arthritis and follow up with pain management specialists. 6. Morbid Obesity Due to her high BMI of 44, weight loss surgery is being considered, and further consultation for surgical options is recommended. 7. Neuropathy The patient reports neuropathic pain in the right foot and should continue monitoring symptoms and discuss further management options at her next appointment. Orders: Orders NE nerve conduction velocity Today R20.2 - Paresthesia of skin NE electromyogram (EMG) Today R20.2 - Paresthesia of skin Referrals Medical Weight Management Referral E66.01 - Morbid (severe) obesity due to excess calories
== END 2025-06-02 11:25 | disposition home or self-care (01) ==
LOC: HO.HMCH 10:44
PROVIDERS: PCP Internal Medicine; Visit Provider Internal Medicine
DX: R20.2 Paresthesia of skin (principal); E66.01 Morbid (severe) obesity due to excess calories; Z68.41 Body mass index [BMI] 40.0-44.9, adult; D50.9 Iron deficiency anemia, unspecified; M51.369 Other intervertebral disc degeneration, lumbar region without mention of lumbar back pain or lower extremity pain; M50.30 Other cervical disc degeneration, unspecified cervical region

== ENCOUNTER → 2025-06-02 10:43 | Outpatient (BNVA) | payer OTHER, SELFPAY | PROVIDERS: PCP Internal Medicine; Visit Provider Internal Medicine | DX: M51.360 Other intervertebral disc degeneration, lumbar region with discogenic back pain only (principal); M50.30 Other cervical disc degeneration, unspecified cervical region; J45.909 Unspecified asthma, uncomplicated; G89.29 Other chronic pain; F32.A Depression, unspecified; E55.9 Vitamin D deficiency, unspecified; D64.9 Anemia, unspecified; E66.01 Morbid (severe) obesity due to excess calories; M79.671 Pain in right foot; R20.2 Paresthesia of skin; D50.9 Iron deficiency anemia, unspecified; G62.9 Polyneuropathy, unspecified; Z68.41 Body mass index [BMI] 40.0-44.9, adult | CPT/HCPCS: 99212 ==

== ENCOUNTER 2025-07-06 08:43 | Outpatient (REF) | payer OTHER, SELFPAY ==
--- NOTE | 2025-07-06 08:45 | EMG_ITS ---
Chief complaint: Bilateral leg numbness and tingling Reason for referral: R20.2 Paresthesia Referred by: Chandrika Avelar MD Procedure done: NCS and EMG of bilateral lower extremity Bilateral peroneal and tibial motor studies were performed with F responses. Tibial H reflexes were obtained. Bilateral superficial peroneal and sural sensory studies were performed.. Needle examination was performed Findings: Bilateral peroneal motor amplitudes were severely diminished. Right sural amplitude was diminished. Otherwise no significant abnormality noted. 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
== END 2025-07-06 08:44 | disposition home or self-care (01) ==
LOC: HO.NEURO 08:43
PROVIDERS: PCP Internal Medicine; Visit Provider Internal Medicine
DX: R20.2 Paresthesia of skin (principal); R20.0 Anesthesia of skin
CPT/HCPCS: 95886; 95911

== ENCOUNTER → 2025-07-06 08:45 | Outpatient (BNV) | payer OTHER, SELFPAY | PROVIDERS: PCP Internal Medicine; Visit Provider Psychiatry & Neurology Neurology | DX: G62.89 Other specified polyneuropathies (principal) | CPT/HCPCS: 95886; 95911 ==